=== PATIENT | male | born 1940 | race Caucasian/White ===

== ENCOUNTER → 2019-04-10 08:38 | Outpatient (BNVA) | payer MEDICARE, MEDICAID, SELFPAY | PROVIDERS: Family Provider Physician Assistant Medical; PCP Physician Assistant Medical; Referring Provider Internal Medicine Rheumatology; Visit Provider Internal Medicine Rheumatology | DX: M05.79 Rheumatoid arthritis with rheumatoid factor of multiple sites without organ or systems involvement (principal); J44.9 Chronic obstructive pulmonary disease, unspecified; Z79.899 Other long term (current) drug therapy; F17.210 Nicotine dependence, cigarettes, uncomplicated | CPT/HCPCS: 99213 ==

== ENCOUNTER → 2019-05-20 08:51 | Outpatient (BNVA) | payer MEDICARE, MEDICAID, SELFPAY | PROVIDERS: Family Provider Physician Assistant Medical; PCP Physician Assistant Medical; Visit Provider Internal Medicine Rheumatology | DX: M05.79 Rheumatoid arthritis with rheumatoid factor of multiple sites without organ or systems involvement (principal); Z79.899 Other long term (current) drug therapy | CPT/HCPCS: 36415; 80076; 82565; 85025; 85651; 86140 ==

== ENCOUNTER → 2019-05-20 09:14 | Outpatient (BNVA) | payer MEDICARE, MEDICAID, SELFPAY | PROVIDERS: Family Provider Physician Assistant Medical; PCP Physician Assistant Medical; Visit Provider Internal Medicine Rheumatology | DX: M05.79 Rheumatoid arthritis with rheumatoid factor of multiple sites without organ or systems involvement (principal); Z79.899 Other long term (current) drug therapy | CPT/HCPCS: 85025 ==

== ENCOUNTER → 2019-09-12 13:22 | Outpatient (BNVA) | payer MEDICARE, MEDICAID, SELFPAY | PROVIDERS: Family Provider Physician Assistant Medical; PCP Physician Assistant Medical; Visit Provider Internal Medicine Rheumatology | DX: M05.79 Rheumatoid arthritis with rheumatoid factor of multiple sites without organ or systems involvement (principal); Z79.899 Other long term (current) drug therapy; J44.9 Chronic obstructive pulmonary disease, unspecified; I25.10 Atherosclerotic heart disease of native coronary artery without angina pectoris; F17.210 Nicotine dependence, cigarettes, uncomplicated | CPT/HCPCS: 99214 ==

== ENCOUNTER → 2020-02-18 11:18 | Outpatient (BNVA) | payer MEDICARE, MEDICAID, SELFPAY | PROVIDERS: Family Provider Physician Assistant Medical; PCP Physician Assistant Medical; Visit Provider Internal Medicine Rheumatology | DX: Z79.899 Other long term (current) drug therapy (principal); M05.79 Rheumatoid arthritis with rheumatoid factor of multiple sites without organ or systems involvement | CPT/HCPCS: 36415; 80076; 82565; 85025; 85651; 86140 ==

== ENCOUNTER → 2020-03-17 11:14 | Outpatient (BNVA) | payer MEDICARE, MEDICAID, SELFPAY | PROVIDERS: Family Provider Physician Assistant Medical; PCP Physician Assistant Medical; Visit Provider Internal Medicine Rheumatology | DX: M05.79 Rheumatoid arthritis with rheumatoid factor of multiple sites without organ or systems involvement (principal); Z79.899 Other long term (current) drug therapy; J44.9 Chronic obstructive pulmonary disease, unspecified; Z90.01 Acquired absence of eye; F17.210 Nicotine dependence, cigarettes, uncomplicated | CPT/HCPCS: 99214 ==

== ENCOUNTER → 2020-07-21 10:29 | Outpatient (BNVA) | payer MEDICARE, MEDICAID, SELFPAY | PROVIDERS: Family Provider Physician Assistant Medical; PCP Physician Assistant Medical; Visit Provider Internal Medicine Rheumatology | DX: M05.79 Rheumatoid arthritis with rheumatoid factor of multiple sites without organ or systems involvement (principal); Z79.899 Other long term (current) drug therapy | CPT/HCPCS: 36415; 80076; 82565; 85025; 86140 ==

== ENCOUNTER → 2020-07-28 09:35 | Outpatient (BNVA) | payer MEDICARE, MEDICAID, SELFPAY | PROVIDERS: Family Provider Physician Assistant Medical; PCP Physician Assistant Medical; Visit Provider Internal Medicine Rheumatology | DX: M05.79 Rheumatoid arthritis with rheumatoid factor of multiple sites without organ or systems involvement (principal); Z79.899 Other long term (current) drug therapy; J44.9 Chronic obstructive pulmonary disease, unspecified; Z90.01 Acquired absence of eye; F17.210 Nicotine dependence, cigarettes, uncomplicated | CPT/HCPCS: 99214 ==

== ENCOUNTER → 2020-10-26 10:54 | Outpatient (BNVA) | payer MEDICARE, MEDICAID, SELFPAY | PROVIDERS: Family Provider Physician Assistant Medical; PCP Physician Assistant Medical; Visit Provider Internal Medicine | DX: M05.79 Rheumatoid arthritis with rheumatoid factor of multiple sites without organ or systems involvement (principal); Z79.899 Other long term (current) drug therapy | CPT/HCPCS: 36415; 80076; 82565; 85025; 86140 ==

== ENCOUNTER → 2021-01-19 10:55 | Outpatient (BNVA) | payer MEDICARE, MEDICAID, SELFPAY | PROVIDERS: Family Provider Physician Assistant Medical; PCP Physician Assistant Medical; Visit Provider Internal Medicine Rheumatology | DX: M05.79 Rheumatoid arthritis with rheumatoid factor of multiple sites without organ or systems involvement (principal); Z79.899 Other long term (current) drug therapy; M19.90 Unspecified osteoarthritis, unspecified site | CPT/HCPCS: 36415; 80076; 82565; 85025; 86140 ==

== ENCOUNTER → 2021-02-02 09:21 | Outpatient (BNVA) | payer MEDICARE, MEDICAID, SELFPAY | PROVIDERS: Family Provider Physician Assistant Medical; PCP Physician Assistant Medical; Visit Provider Internal Medicine Rheumatology | DX: M05.79 Rheumatoid arthritis with rheumatoid factor of multiple sites without organ or systems involvement (principal); Z79.899 Other long term (current) drug therapy; J44.9 Chronic obstructive pulmonary disease, unspecified; Z90.01 Acquired absence of eye; Z71.89 Other specified counseling; F17.210 Nicotine dependence, cigarettes, uncomplicated | CPT/HCPCS: 99214 ==

== ENCOUNTER 2021-06-06 17:15 | Inpatient (IN) | payer MEDICARE, MEDICAID, SELFPAY ==
[2021-06-06] VITALS (9 sets, daily range): BP systolic 101–153; BP diastolic 63–107; PULSE 84–99; RESP 16–19; TEMP 36.6–37; O2SAT 92–96; BMI 17.9; BMI 19.2
--- NOTE | 2021-06-06 17:16 | XRR_ITS ---
PROCEDURE INFORMATION: Exam: XR Chest Exam date and time: 06/06/2021 5:23 PM Age: 80 years old Clinical indication: Dyspnea; Additional info: Fall TECHNIQUE: Imaging protocol: XR of the chest. Views: 1 view. COMPARISON: CR Chest 1 view [id number] 03/15/2018 4:42 AM FINDINGS: Lungs: Unremarkable. No consolidation. Pleural spaces: Unremarkable. No pleural effusion. No pneumothorax. Heart/Mediastinum: Unremarkable. No cardiomegaly. Bones/joints: Unremarkable. XR/XR chest 1V portable [id number] IMPRESSION: No acute findings.
--- NOTE | 2021-06-06 17:16 | XRR_ITS ---
PROCEDURE INFORMATION: Exam: XR Left Hip Exam date and time: 06/06/2021 5:23 PM Age: 80 years old Clinical indication: Injury or trauma; Fall; Fracture of pelvis & hip; Left; Traumatic fracture; Neck of femur, base; Nondisplaced TECHNIQUE: Imaging protocol: XR Left hip. Views: 2 or 3 views hip with pelvis when performed. COMPARISON: No relevant prior studies available. FINDINGS: Bones/joints: Intertrochanteric mildly displaced left hip fracture. Soft tissues: Unremarkable. XR/XR hip LT 2-3V wo/w pel* [id number] IMPRESSION: Intertrochanteric mildly displaced left hip fracture.
--- NOTE | 2021-06-06 17:18 | ED_ITS ---
HPI - Fall General: Chief Complaint: Fall Stated Complaint: LEFT HIP PAIN S/P FALL Time Seen by Provider: 06/06/21 17:16 Source: patient and EMS Mode of arrival: EMS Limitations: no limitations History of Present Illness: 80-year-old male who tripped and fell at home roughly an hour ago. He states he landed on his left hip when he fell has had left hip pain since that fall. He denies any other injuries denies hitting his head denies any back pain states pain in his hips of 6 out of 10 much worse with any type of movement improved with rest. Associated symptoms-after fall: Denies abdominal pain, chest pain or headache(s) Review of Systems Const: Denies: fever(s), chills, body aches or change in appetite Eyes: Denies: blurry vision or eye discomfort ENMT: Denies: throat pain or dental pain Card: Denies: chest pain Resp: Denies: dyspnea GI: Denies: abdominal pain, nausea, vomiting or diarrhea : Denies: dysuria Musc: Reports: extremity pain Skin/Breast: Denies: rash Neuro: Denies: headache(s) Psych: Denies: depression Joshua/Lymph: Denies: easy bruising All/Imm: Denies: urticaria PFSH ED PFSH: Medical History CAD (coronary artery disease) Chronic kidney disease (CKD) COPD (chronic obstructive pulmonary disease) Diabetes mellitus Dyslipidemia Gout, unspecified High risk medication use History of anterior wall myocardial infarction Immunization counseling Ischemic cardiomyopathy Mild aortic stenosis Presence of stent in LAD coronary artery Rheumatoid arthritis with rheumatoid factor of multiple sites without organ or systems involvement Tobacco abuse Surgical History H/O bilateral cataract extraction History of eye evisceration Stented coronary artery Family History Denies family history of Rheumatoid arthritis Lupus Social History Smoking and tobacco status: current every day smoker cigarettes Packs smoked per day: 0.5 Years cigarettes smoked: 30 Alcohol intake: unknown Marital status: Physical Exam Const: COMMON NORMALS: no acute distress, patient oriented x3 and healthy appearing HENMT: COMMON NORMALS: normocephalic and atraumatic HEAD & SCALP: normocephalic and atraumatic Eye: COMMON NORMALS: Equal, round and reactive pupils present and EOMs intact bilaterally PUPIL: Yes Equal, round and reactive pupils present Neck/C-Spine: COMMON NORMALS: full ROM and supple Chest: COMMONS NORMALS: normal inspection of the chest and normal palpation of entire chest wall Resp: COMMON NORMALS: normal respiratory effort, No retractions, No use of accessory muscles and clear to auscultation bilaterally AUSCULTATION: clear to auscultation bilaterally Cardio: COMMON NORMALS: regular rate, regular rhythm and No murmurs present (Cardio) RATE: regular rate RHYTHM: regular rhythm GI: COMMON NORMALS: Normal to inspection, nondistended, normoactive bowel sounds present, Soft to palpation, non-tender and no masses PALPATION: Yes Soft to palpation Extremity: NARRATIVE EXTREMITY EXAM: Tenderness to left hip on palpation distal pulses and sensations intact Neuro: COMMON NORMALS: patient oriented x3, moves all extremities and no focal motor deficits Psych: COMMON NORMALS: mental status grossly normal, Normal thought process present and cooperative THOUGHT PROCESS: Normal thought process present Skin: COMMON NORMALS: no rashes or lesions noted and no wounds GENERAL SKIN EXAM: no rashes or lesions noted Course Vital Signs: Vital signs: Vital Signs Temperature 97.9 F 06/06/21 17:16 Pulse Rate 87 06/06/21 17:32 Respiratory Rate 16 06/06/21 17:32 Blood Pressure 101/63 06/06/21 17:32 Pulse Oximetry 96 06/06/21 17:32 MDM - Fall Medical Decision Making Patient presents here with a hip fracture from a fall no other injuries noted I spoke to hospitalist along with orthopedist and will admit at this time. He has no head injury or neck injury. 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
--- NOTE | 2021-06-06 17:30 | ECG_ITS ---
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 Measurements Intervals [place] Rate: 78 P: 50 MT: 180 QRS: 42 QRSD: 89 T: 50 QT: 376 QTc: 431 Interpretive Statements SINUS RHYTHM LOW QRS VOLTAGE IN PRECORDIAL LEADS [QRS DEFLECTION < 1.0 mV IN CHEST LEADS] POSSIBLE ANTERIOR MYOCARDIAL INFARCTION , PROBABLY OLD [30 ms Q WAVE IN V3/V4, OR R < 0.2 mV IN V4] Compared to ECG 03/15/2018 12:36:49 Low QRS voltage now present Myocardial infarct finding now present Sinus tachycardia no longer present Electronically Signed On 06-07-2021 9:00:55 CDT by Erik Barnes M.D. [id number]
[2021-06-06] MEDS: ondansetron 2 mg/ML SDV 2 mL 4 MG IVP ×2 (17:46→20:19)
[2021-06-06] MEDS: morphine 4 mg/mL SDV 1 mL IVP ×2 (17:46→18:46)
[2021-06-06 17:50] LABS: Basophils # 0.1 10^3/uL (0.0-0.1); Basophils % 0.4 %; Eosinophils # 0.3 10^3/uL (0.0-0.8); Eosinophils % 2.1 %; Hematocrit 36.3 % (42.0-52.0); Hemoglobin 11.8 g/dL (11.7-16.6); Lymphocytes # 1.2 10^3/uL (0.8-4.8); Lymphocytes % 9.9 %; Mean Corpuscular HGB Conc 32.5 g/dL (30.0-36.0); Mean Corpuscular Hemoglobin 36.4 pg (28.0-34.0); Mean Platelet Volume 10.2 fL (7.4-10.4); Monocytes # 0.6 10^3/uL (0.2-0.9); Monocytes % 5.1 %; Neutrophils # 9.52 10^3/uL (1.8-7.7); Neutrophils % 81.7 %; Nucleated Red Blood Cells % 0 %; Platelet Count 145 10^3/cmm (130-400); Red Blood Count 3.24 10^6/uL (4.1-5.3); Red Cell Distribution Width 16.2 % (12.1-15.1); White Blood Count 11.7 10^3/uL (4.0-10.0)
[2021-06-06 18:04] LABS: INR 1.05 (0.8-1.2)
[2021-06-06 18:11] LABS: Alanine Aminotransferase 25 U/L (0-41); Albumin Level 4.4 g/dL (3.5-5.2); Alkaline Phosphatase 158 IU/L (40-130); Anion Gap 13.9 (5-19); Aspartate Amino Transferase 32 U/L (0-40); Blood Urea Nitrogen 20 mg/dL (8-23); Calcium 9.7 mg/dL (8.5-10.5); Carbon Dioxide 24 mmol/L (22-29); Chloride 103 mmol/L (98-107); Glucose 120 mg/dL (65-115); Osmolality Calculated 288 mOsm/kg (285-295); Potassium 3.9 mmol/L (3.5-5.1); Sodium 137 mmol/L (136-145); Total Bilirubin 0.5 mg/dL (0.15-1.2); Total Protein 7.4 g/dL (6.6-8.7)
--- NOTE | 2021-06-06 18:45 | P.HP_ITS ---
Providers/Chief Complaint Primary Care Provider: Maria Del Carmen London MD Chief Complaint: LEFT HIP PAIN S/P FALL History of Present Illness Pleasant 80-year-old gentleman with history of CAD, with LAD stenting about 13 years ago, with COPD, not normally on supplemental oxygen, but with quite significant exertional dyspnea, states that if he walked out to the nursing station and back he would have to stop and rest, with rheumatoid arthritis, with intermittent prednisone therapy, currently taking it only as needed, not taking at the moment, current smoker, states smoking 1.5-1 pack/day, says that his previous private advisor had given him permission to continue smoking and does not plan on quitting, with other comorbidities including HTN, HLD, DM 2, was loading up a metal toolbox onto the back of a pickup truck with his friend, and states that his legs got tangled up underneath him somehow, he ended up falling on his left hip. With finding of left hip fracture in ER orthopedics is consulted. Review of Systems Const: Denies: fever(s), chills, body aches or malaise Eyes: Denies: change in vision or eye redness ENMT: Denies: throat pain, oral sores or ear or mastoid pain Card: Reports: dyspnea on exertion; Denies: chest pain, edema or pre-syncope Resp: Reports: productive cough (chronic); Denies: dyspnea, change in phlegm color or hemoptysis GI: Denies: abdominal pain, nausea, vomiting, diarrhea, constipation, hematochezia or melena : Denies: flank pain, difficulty urinating, urinary frequency or hematuria Musc: Reports: joint pain (L hip); Denies: back pain, joint swelling or joint redness Skin/Breast: Denies: rash, sores or new lesions Neuro: Denies: headache(s), numbness in extremities, weakness in extremities, dizziness, confusion or seizure-like activity Endo: Denies: polyuria or polydipsia Joshua/Lymph: Denies: easy bleeding or purpura All/Imm: Denies: urticaria, throat swelling or tongue swelling Medications/Allergies Home Medications Medication Instructions Recorded Confirmed Last Taken Type albuterol sulfate 90 mcg/actuation 2 puff INHALATION Q6H PRN 03/15/19 06/06/21 Unknown History aerosol inhaler (ProAir HFA) aspirin 81 mg tablet,delayed 81 mg PO DAILY tab 03/15/19 06/06/21 06/06/21 History release (Adult Aspirin Regimen) fluticasone 250 mcg-salmeterol 50 1 inh INHALATION BID 03/15/19 06/06/21 06/06/21 History mcg/dose blistr powdr for inhalation (Advair Diskus) ipratropium bromide 17 1 puff INHALATION QID PRN 03/15/19 06/06/21 Unknown History mcg/actuation HFA aerosol inhaler (Atrovent HFA) umeclidinium 62.5 mcg/actuation 1 inh INHALATION Q24H 03/15/19 06/06/21 06/06/21 History blister powder for inhalation (Incruse Ellipta) prednisone 5 mg tablet See Rx Instructions PO DAILY #30 02/25/20 06/06/21 Unknown Rx tab folic acid 1 mg tablet 1 mg PO DAILY #90 tab 10/07/20 06/06/21 06/06/21 Rx methotrexate sodium 2.5 mg tablet See Rx Instructions PO .COMPLEX 02/02/21 06/06/21 06/03/21 Rx #35 tab adalimumab 40 mg/0.4 mL 40 mg (0.4 mL) SUBCUT Q14D #2 each 05/10/21 06/06/21 06/03/21 Rx subcutaneous pen kit (Humira(CF) Pen) diclofenac sodium 1 % topical gel 2 g TOPICAL QID PRN 06/06/21 06/06/21 Unknown History fluticasone propionate 50 1 spray INTRANASAL DAILY PRN 06/06/21 06/06/21 Unknown History mcg/actuation nasal spray,suspension polyethylene glycol 3350 17 17 g PO DAILY PRN 06/06/21 06/06/21 Unknown History gram/dose oral powder (Miralax) simvastatin 40 mg tablet 40 mg PO BEDTIME 06/06/21 06/06/21 06/05/21 History Allergies Allergy/AdvReac Type Severity Reaction Status Date / Time No Known Allergies Allergy Verified 10/30/20 10:15 PFSH Acute PFSH: Medical History CAD (coronary artery disease) Chronic kidney disease (CKD) COPD (chronic obstructive pulmonary disease) Diabetes mellitus Dyslipidemia Gout, unspecified High risk medication use History of anterior wall myocardial infarction Immunization counseling Ischemic cardiomyopathy Mild aortic stenosis Presence of stent in LAD coronary artery Rheumatoid arthritis with rheumatoid factor of multiple sites without organ or systems involvement Tobacco abuse Surgical History H/O bilateral cataract extraction History of eye evisceration Stented coronary artery Family History Denies family history of Rheumatoid arthritis Lupus Social History (Updated 06/06/21 @ 19:04 by Aditya Beck MD) Smoking and tobacco status: current every day smoker cigarettes Packs smoked per day: 1.5 Years cigarettes smoked: 30 Alcohol intake: never Substance/Drug Use: never Marital status: Vitals/I&O/Wt Last Vital Signs Temp 98.5 F 06/06/21 18:29 Pulse 84 06/06/21 18:29 Resp 17 06/06/21 18:29 BP 119/63 06/06/21 18:29 Pulse Ox 94 06/06/21 18:29 Weight last 48 hrs Weight 56.699 kg Physical Exam Narrative: Daughter at bedside. Const: COMMON NORMALS: no acute distress and patient oriented x3 HENMT: COMMON NORMALS: oropharynx normal Neck/C-Spine: COMMON NORMALS: no JVD Resp: COMMON NORMALS: normal respiratory effort and clear to auscultation bilaterally AUSCULTATION: clear to auscultation bilaterally Cardio: COMMON NORMALS: no JVD, regular rhythm, S1 normal heart sound present, S2 normal heart sound present and No murmurs present (Cardio) RHYTHM: regular rhythm HEART SOUNDS: S1 normal heart sound present and S2 normal heart sound present GI: COMMON NORMALS: Normal to inspection, nondistended, normoactive bowel sounds present, Soft to palpation and non-tender PALPATION: Yes Soft to palpation Extremity: COMMON NORMALS: no joint enlargement and no pedal edema NARRATIVE EXTREMITY EXAM: L hip deformity Neuro: COMMON NORMALS: patient oriented x3 and moves all extremities Skin: COMMON NORMALS: no rashes or lesions noted GENERAL SKIN EXAM: no rashes or lesions noted Data : 06/06/21 17:45 06/06/21 17:45 A&P Assessment and plan (1) Intertrochanteric fracture of left hip: Discussed with him and his daughter, elevated risk of surgery based on age, chronic severe systemic disease, chronic steroids, dyspnea with mild to moderate exertion, continued smoking, COPD, underweight, chronic steroid use. Discussed risk of serious complication after 18%, and any complication up to 20%. Risk of pneumonia up to 9%, all above average. Cardio complication up to 3%. Risk of admission up to 14%, risk of sepsis up to 3.1%. up to 7.6%. Among others these parameters are all above average. Certainly this will play into his decision regarding treatment, nonsurgical option discussed, however, he does value his independence, as nonsurgical options would not allow for early mobilization. At the moment with underlying severe chronic illness, he does not have exacerbation of COPD, no suggestion of acute TX, or other additional acute illness, and as such if decision is made to proceed with surgery, additional delays would not be of benefit. He is not recently on steroids, however, has had them frequently in the past, using as needed. May be at risk for adrenal insufficiency. Currently not hypotensive, rather hypertensive. Monitor blood pressures. Status: Acute (2) COPD (chronic obstructive pulmonary disease): Not currently in exacerbation. Continue albuterol as needed. Status: Acute Qualifiers: COPD type: unspecified COPD Qualified Code(s): J44.9 - Chronic obstructive pulmonary disease, unspecified (3) CAD (coronary artery disease): With prior stenting, continue aspirin, statin, is not on beta-sterling. Status: Acute Qualifiers: Coronary Disease-Associated Artery/Lesion type: [place] artery [place] vs. transplanted heart: [place] heart Associated angina: without angina Qualified Code(s): I25.10 - Atherosclerotic heart disease of [place] coronary artery without angina pectoris (4) High risk medication use: Status: Acute (5) Rheumatoid arthritis with rheumatoid factor of multiple sites without organ or systems involvement: Status: Acute (6) Tobacco abuse: Discussed with him smoking cessation. He states his previous private advisor given permission to smoke, and states he is not intended to quit. Discussed underlying conditions including coronary disease, elevated risk of progression of cardiovascular disease including in the setting of rheumatoid arthritis, COPD, with progressive dyspnea, and other risks. Encouraged him to consider quitting smoking. Continue to encourage. Status: Acute (7) Ischemic cardiomyopathy: Status: Acute Attestations Medical Necessity Statement*: Admission of over 2 midnights is anticipated for assessment of management of left hip fracture in gentleman with multiple underlying chronic comorbidities. 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 transplanted heart: [place] heart Associated angina: without angina High risk medication use Z79.899 Rheumatoid arthritis with rheumatoid factor of multiple sites without organ or systems involvement M05.79 Tobacco abuse Z72.0 Ischemic cardiomyopathy I25.5
[2021-06-07] VITALS (26 sets, daily range): BP systolic 92–122; BP diastolic 55–89; PULSE 70–97; RESP 12–19; TEMP 36.3–36.9; O2SAT 86–99
--- NOTE | 2021-06-07 | SCC_ITS ---
Procedure done: Left IM nail for IT fracture 32 seconds of fluoroscopic guidance, for a cumulative dose of 3.37 mGy, was provided to Dr. Mancilla by the radiology department. C-arm images of the LEFT hip were saved for the patient's permanent record. [facility]
[2021-06-07 03:28] LABS: Basophils % 0.4 %; Eosinophils % 0.5 %; Lymphocytes # 1.5 10^3/uL (0.8-4.8); Lymphocytes % 18.7 %; Mean Corpuscular HGB Conc 32.3 g/dL (30.0-36.0); Mean Corpuscular Volume 111.5 fl (80-94); Mean Platelet Volume 10.6 fL (7.4-10.4); Monocytes # 0.5 10^3/uL (0.2-0.9); Monocytes % 5.8 %; Neutrophils # 6.13 10^3/uL (1.8-7.7); Neutrophils % 74.2 %; Nucleated Red Blood Cells % 0 %; Platelet Count 123 10^3/cmm (130-400); Red Blood Count 2.78 10^6/uL (4.1-5.3); Red Cell Distribution Width 16.1 % (12.1-15.1); White Blood Count 8.3 10^3/uL (4.0-10.0)
[2021-06-07 03:42] LABS: Albumin Level 3.7 g/dL (3.5-5.2); Alkaline Phosphatase 134 IU/L (40-130); Anion Gap 14.4 (5-19); Aspartate Amino Transferase 31 U/L (0-40); Blood Urea Nitrogen 22 mg/dL (8-23); Calcium 8.9 mg/dL (8.5-10.5); Carbon Dioxide 24 mmol/L (22-29); Chloride 104 mmol/L (98-107); Globulin 2.7 g/dL (1.3-4.6); Glucose 117 mg/dL (65-115); Osmolality Calculated 290 mOsm/kg (285-295); Potassium 4.4 mmol/L (3.5-5.1); Sodium 138 mmol/L (136-145); Total Bilirubin 0.6 mg/dL (0.15-1.2); Total Protein 6.4 g/dL (6.6-8.7)
[2021-06-07 04:05] LABS: Alanine Aminotransferase 24 U/L (0-41)
--- NOTE | 2021-06-07 06:44 | PM.CONSULT ---
Providers/Reason For Consult Consulting Physician/Specialty*: Orthopedics Reason for Consult*: Left hip pain Attending Physician: Aditya Beck Primary Care Provider: Maria Del Carmen London MD History of Present Illness History of Present Illness Doron Curtis is a 80 year old male was loading something into the back of a pickup when he fell sustaining injury to his left hip felt immediate pain. He was transported to [facility]. X-rays confirmed a left hip fracture. He was admitted for more definitive treatment orthopedics was consulted. He was [facility] room 272 with continued left hip pain. Any movement makes it much worse. Is been constant sharp stabbing in nature. Rest gives him some temporary relief. Pain is localized to the left hip denies any back or neck pain. Denies any loss of consciousness in the fall. Ranks the pain is 7 out of 10 on the pain scale. Denies any knee or ankle pain. An extensive review of the patient's past medical history, surgical history, allergies, medications, family history, social history, and review of systems was completed Review of Systems Const: Denies: fever(s), chills, body aches or malaise Eyes: Denies: change in vision or eye redness ENMT: Denies: throat pain, oral sores or ear or mastoid pain Card: Reports: dyspnea on exertion; Denies: chest pain, edema or pre-syncope Resp: Reports: productive cough (chronic); Denies: dyspnea, change in phlegm color or hemoptysis GI: Denies: abdominal pain, nausea, vomiting, diarrhea, constipation, hematochezia or melena : Denies: flank pain, difficulty urinating, urinary frequency or hematuria Musc: Reports: joint pain (L hip); Denies: back pain, joint swelling or joint redness Skin/Breast: Denies: rash, sores or new lesions Neuro: Denies: headache(s), numbness in extremities, weakness in extremities, dizziness, confusion or seizure-like activity Endo: Denies: polyuria or polydipsia Joshua/Lymph: Denies: easy bleeding or purpura All/Imm: Denies: urticaria, throat swelling or tongue swelling Medications/Allergies Home Medications Medication Instructions Recorded Confirmed Last Taken Type albuterol sulfate 90 mcg/actuation 2 puff INHALATION Q6H PRN 03/15/19 06/06/21 Unknown History aerosol inhaler (ProAir HFA) aspirin 81 mg tablet,delayed 81 mg PO DAILY tab 03/15/19 06/06/21 06/06/21 History release (Adult Aspirin Regimen) fluticasone 250 mcg-salmeterol 50 1 inh INHALATION BID 03/15/19 06/06/21 06/06/21 History mcg/dose blistr powdr for inhalation (Advair Diskus) ipratropium bromide 17 1 puff INHALATION QID PRN 03/15/19 06/06/21 Unknown History mcg/actuation HFA aerosol inhaler (Atrovent HFA) umeclidinium 62.5 mcg/actuation 1 inh INHALATION Q24H 03/15/19 06/06/21 06/06/21 History blister powder for inhalation (Incruse Ellipta) prednisone 5 mg tablet See Rx Instructions PO DAILY #30 02/25/20 06/06/21 Unknown Rx tab folic acid 1 mg tablet 1 mg PO DAILY #90 tab 10/07/20 06/06/21 06/06/21 Rx methotrexate sodium 2.5 mg tablet See Rx Instructions PO .COMPLEX 02/02/21 06/06/21 06/03/21 Rx #35 tab adalimumab 40 mg/0.4 mL 40 mg (0.4 mL) SUBCUT Q14D #2 each 05/10/21 06/06/21 06/03/21 Rx subcutaneous pen kit (Humira(CF) Pen) diclofenac sodium 1 % topical gel 2 g TOPICAL QID PRN 06/06/21 06/06/21 Unknown History fluticasone propionate 50 1 spray INTRANASAL DAILY PRN 06/06/21 06/06/21 Unknown History mcg/actuation nasal spray,suspension polyethylene glycol 3350 17 17 g PO DAILY PRN 06/06/21 06/06/21 Unknown History gram/dose oral powder (Miralax) simvastatin 40 mg tablet 40 mg PO BEDTIME 06/06/21 06/06/21 06/05/21 History Allergies Allergy/AdvReac Type Severity Reaction Status Date / Time No Known Allergies Allergy Verified 10/30/20 10:15 PFSH Acute PFSH: Medical History CAD (coronary artery disease) Chronic kidney disease (CKD) COPD (chronic obstructive pulmonary disease) Diabetes mellitus Dyslipidemia Gout, unspecified High risk medication use History of anterior wall myocardial infarction Immunization counseling Ischemic cardiomyopathy Mild aortic stenosis Presence of stent in LAD coronary artery Rheumatoid arthritis with rheumatoid factor of multiple sites without organ or systems involvement Tobacco abuse Surgical History H/O bilateral cataract extraction History of eye evisceration Stented coronary artery Family History Denies family history of Rheumatoid arthritis Lupus Social History (Updated 06/06/21 @ 19:04 by Aditya Beck MD) Smoking and tobacco status: current every day smoker cigarettes Packs smoked per day: 1.5 Years cigarettes smoked: 30 Alcohol intake: never Marital status: Vitals/I&O/Wt Last Vital Signs Temp 97.5 F L 06/07/21 04:00 Pulse 77 06/07/21 04:00 Resp 17 06/07/21 04:00 BP 99/55 06/07/21 04:00 Pulse Ox 97 06/07/21 04:00 06/06/21 06/06/21 06/07/21 14:59 22:59 06:59 Intake Total 100 / 100 Output Total 350 / 350 Balance -250 / -250 Weight last 48 hrs Weight 130 lb Weight 125 lb Physical Exam Narrative: He is alert oriented x3 has good general appearance normal mood normal affect. He has had operative removal of his right eye. He has no palpable pain in the cervical thoracic or lumbar region. Does have palpable pain over the left hip with obvious external rotation. He has positive logroll on the left negative on the right. Skin is clear warm femoral good cap refill calves are supple no medial thigh tenderness. Dorsalis pedis posterior pulses are palpable. Has full range of motion of the right lower extremity at the hip knee and ankle. HENMT: COMMON NORMALS: normocephalic and atraumatic HEAD & SCALP: normocephalic and atraumatic OTHER: Surgical removal of the right eye Resp: COMMON NORMALS: normal respiratory effort Cardio: COMMON NORMALS: regular rate and regular rhythm RATE: regular rate RHYTHM: regular rhythm GI: COMMON NORMALS: Soft to palpation and non-tender PALPATION: Yes Soft to palpation : COMMON NORMALS: Yes no CVA tenderness BLADDER/KIDNEY EXAM: Yes no CVA tenderness Back/Pelvis: COMMON NORMALS: no CVA tenderness Psych: COMMON NORMALS: mental status grossly normal Data : 06/07/21 02:24 06/07/21 02:24 A&P Assessment and plan (1) Intertrochanteric fracture of left hip: Discussed the x-ray findings with the patient. Will proceed with open reduction internal fixation with a trochanteric femoral nail of the left hip. Discussed with Dr. Mancilla agrees above-stated plan. We will keep him n.p.o. 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
--- NOTE | 2021-06-07 07:30 | P.ANESASSM_ITS ---
Pre-Anesthetic Assessment Height/Weight: Height 1.75 m Weight 58.967 kg Temp Pulse Resp BP Pulse Ox 97.5 F L 85 18 108/69 95 06/07/21 04:00 06/07/21 07:18 06/07/21 07:18 06/07/21 07:18 06/07/21 07:18 Preop Diagnosis: Left Intertrochanteric Hip Fracture Operation Date: 06/07/21 14:50 Proposed Procedures p Trochanteric Femoral Nail(Left) - Pineda Mancilla DO Last intake: Intake Last Liquid Date 06/06/21 Last Liquid Time 16:00 Last Solid Date 06/06/21 Last Solid Time 08:00 Medications/Allergies Home Medications Medication Instructions Recorded Confirmed Last Taken Type albuterol sulfate 90 mcg/actuation 2 puff INHALATION Q6H PRN 03/15/19 06/06/21 Unknown History aerosol inhaler (ProAir HFA) aspirin 81 mg tablet,delayed 81 mg PO DAILY tab 03/15/19 06/06/21 06/06/21 History release (Adult Aspirin Regimen) fluticasone 250 mcg-salmeterol 50 1 inh INHALATION BID 03/15/19 06/06/21 06/06/21 History mcg/dose blistr powdr for inhalation (Advair Diskus) ipratropium bromide 17 1 puff INHALATION QID PRN 03/15/19 06/06/21 Unknown History mcg/actuation HFA aerosol inhaler (Atrovent HFA) umeclidinium 62.5 mcg/actuation 1 inh INHALATION Q24H 03/15/19 06/06/21 06/06/21 History blister powder for inhalation (Incruse Ellipta) prednisone 5 mg tablet See Rx Instructions PO DAILY #30 02/25/20 06/06/21 Unknown Rx tab folic acid 1 mg tablet 1 mg PO DAILY #90 tab 10/07/20 06/06/21 06/06/21 Rx methotrexate sodium 2.5 mg tablet See Rx Instructions PO .COMPLEX 02/02/21 06/06/21 06/03/21 Rx #35 tab adalimumab 40 mg/0.4 mL 40 mg (0.4 mL) SUBCUT Q14D #2 each 05/10/21 06/06/21 06/03/21 Rx subcutaneous pen kit (Humira(CF) Pen) diclofenac sodium 1 % topical gel 2 g TOPICAL QID PRN 06/06/21 06/06/21 Unknown History fluticasone propionate 50 1 spray INTRANASAL DAILY PRN 06/06/21 06/06/21 Unknown History mcg/actuation nasal spray,suspension polyethylene glycol 3350 17 17 g PO DAILY PRN 06/06/21 06/06/21 Unknown History gram/dose oral powder (Miralax) simvastatin 40 mg tablet 40 mg PO BEDTIME 06/06/21 06/06/21 06/05/21 History Allergies Allergy/AdvReac Type Severity Reaction Status Date / Time No Known Allergies Allergy Verified 10/30/20 10:15 [facility] Anesthesia Medical History CAD (coronary artery disease) Chronic kidney disease (CKD) COPD (chronic obstructive pulmonary disease) Diabetes mellitus Dyslipidemia Gout, unspecified High risk medication use History of anterior wall myocardial infarction Immunization counseling Ischemic cardiomyopathy Mild aortic stenosis Presence of stent in LAD coronary artery Rheumatoid arthritis with rheumatoid factor of multiple sites without organ or systems involvement Tobacco abuse Surgical History H/O bilateral cataract extraction History of eye evisceration Stented coronary artery Family History Denies family history of Rheumatoid arthritis Lupus Social History (Updated 06/06/21 @ 19:04 by Aditya Beck MD) Smoking and tobacco status: current every day smoker cigarettes Packs smoked per day: 1.5 Years cigarettes smoked: 30 Alcohol intake: never Marital status: Data Anesthesia : 06/07/21 02:24 06/07/21 02:24 Short CBC 06/06/21 06/07/21 Range/Units 17:45 02:24 WBC 11.7 H 8.3 (4.0-10.0) 10^3/uL Hgb 11.8 10.0 L (11.7-16.6) g/dL Hct 36.3 L 31.0 L (42.0-52.0) % MCV 112.0 H 111.5 H (80-94) fl Plt Count 145 123 L (130-400) 10^3/cmm Neut % (Auto) 81.7 74.2 % Neut # (Auto) 9.52 H 6.13 (1.8-7.7) 10^3/uL BMP 06/06/21 06/07/21 17:45 02:24 Sodium 137 138 Potassium 3.9 4.4 Chloride 103 104 Carbon Dioxide 24 24 BUN 20 22 Creatinine 1.1 1.2 Glucose 120 H 117 H Calcium 9.7 8.9 Liver Function 06/06/21 06/07/21 Range/Units 17:45 02:24 Total Bilirubin 0.5 0.6 (0.15-1.2) mg/dL AST 32 31 (0-40) U/L ALT 25 24 (0-41) U/L Alkaline Phosphatase 158 H 134 H (40-130) IU/L Albumin 4.4 3.7 (3.5-5.2) g/dL Coags 06/06/21 17:45 PT 14.00 INR 1.05 Cardiac Studies: No Data to Display
--- NOTE | 2021-06-07 07:51 | PC.NURSE ---
surgery Pt went down to surgery around 714.
--- NOTE | 2021-06-07 08:10 | XR_ITS ---
WS: [id number] Exam: XR hip LT 1V wo/w pel [id number] Date/Time of Exam: 06/07/2021 8:10 AM Reason For Exam: OR PICS Comparison 06/06/2021. A single lateral intraoperative C-arm image of the left hip is submitted for ev aluation. Previously noted intertrochanteric fracture of the left hip has been stabilized with an intramedullar y lenore and compression screw. No other significant finding on this limited study.
--- NOTE | 2021-06-07 08:20 | PM.OP ---
Operative Report Date of procedure: June 07, 2021 Pre-op diagnosis: Preop Diagnosis Left Intertrochanteric Hip Fracture Post-op diagnosis: same Procedure done: Left IM nail for IT fracture Surgeon: Pineda Mancilla Craft Demonstrator: Quintin Gold Craft Demonstrator: The surgical coordinator, Quintin Gold, PAC was needed for his expertise with fracture care. He was important and necessary throughout the procedure to complete in a safe and timely manner. He assisted with patient positioning prepping and draping tissue retraction suctioning of the operative field protection of the critical structures and tissue closure Estimated blood loss (mL): 5 Procedure: Patient was brought to the operative suite after undergoing anesthesia was placed in the supine position on the fracture table. Traction and rotation was applied in order to facilitate reducing the fracture. This was confirmed under C-arm guidance. Skin incision was made over the left hip. Starting pin was inserted opening reamer was inserted. The nail was then inserted into the top of the trochanter and down into the shaft. The lag screw was then placed by placing a guidewire then overreamed. This was 110 mm screw was locked into position. The distal locking screw was placed as a 40 mm screw. AP lateral fluoroscopy ensured that the fracture and hardware improved position. Wounds were irrigated closed with Vicryl mary. Sterile dressings were applied patient was transferred to the PACU in stable condition.
[2021-06-07] MEDS: HYDROcodone-acetaminophen 5-325 mg Tablet PO (09:14)
[2021-06-07] MEDS: albuterol 8 gm MDI 2 PUFF INHALATION (09:46)
[2021-06-07] MEDS: sodium chloride 0.9% 1,000 ML 30 ML IV (10:03)
--- NOTE | 2021-06-07 10:26 | PC.CHAP ---
Pastoral Care Encounter/Spiritual Assessment Type of Contact [] Declined search engineer visit [] Patient/Family/Request visit [] Outpatient visit [] Follow-up visit [] Physician referral [] Code/Alert [ x] Routine visit [] Staff referral [] Actively dying [] Patient sleeping [] Family support [] [] Out of room [] Palliative care [] [ x] Receiving care in room [] Pre-surgical visit [] Trauma [] Long length of stay [] ICU visit [] Other: Relational/Emotional Strength [] Patient feels connected with others/family/visitors/staff [] Distress [] Loneliness/isolation [] Abandonment Spirituality of Patient [] Person of Avril [] Attends Baptism of their Avril [] Believes in Prayer [] Reads Bible or Confucianism materials [] There are Spiritual issues to be addressed Machine Feeder Interventions [] Prayer [] Active listening [] Non-anxious presence [] Spiritual/emotional support [] Crisis/trauma care [] Spiritual counseling [] Bereavement support [] Provided bereavement packet [] Provided Bible/devotional materials [] Provided toy/stuffed animal, coloring book to patient or family member [] Provided Communion [] Anointing/Lipan [] Salvation [] Completed spiritual assessment [] Other: Impact on Illness or Injury [] Angry [] Fearful [] Anxious [] Often cries [] Exhaustion [] Unable to work [] Unable to attend anabaptist [] Unable to walk/stand [] Unable to read [] Unable to drive [] Unable to eat/drink [] Unable to sleep [] Unable to be with family [] Patient intubated [] Other: Summary Time spent with patient
--- NOTE | 2021-06-07 12:01 | PM.PN ---
Subjective Subjective: Patient seen post surgery. Seems to be doing okay presently. Pain is tolerable. Breathing is at baseline. He has brought in his inhalers from home. No reports of any chest pain. Follows with Dr. Kelly outpatient for rheumatology and Dr Barnes for cardiology, though has not seen either since last fall. Medications: Reviewed: Yes Vitals/I&O/Wt Last Vital Signs Temp 97.9 F 06/07/21 10:15 Pulse 91 06/07/21 10:15 Resp 17 06/07/21 10:15 BP 108/72 06/07/21 10:15 Pulse Ox 93 06/07/21 10:15 06/06/21 06/07/21 06/07/21 22:59 06:59 14:59 Intake Total 100 / 100 360 / 360 Output Total 475 / 475 75 / 75 Balance -375 / -375 285 / 285 Weight last 48 hrs Weight 58.967 kg Weight 56.699 kg Physical Exam Narrative: Constitutional: Awake and alert, answers questions HEENT: History of prior left eye enucleation evident but otherwise normocephalic, moist mucous membranes Respiratory: Scattered wheezes, no accessory muscle use noted Cardiovascular: Regular rhythm Abdomen: Soft, nontender, positive bowel sounds Extremities: Dressing intact to left lateral hip area, ice in place, SCDs in place Neuro: Speech clear, wiggles toes bilaterally and strength is grossly equal at both feet and hands Data : 06/07/21 02:24 06/07/21 02:24 A&P Assessment and plan (1) Intertrochanteric fracture of left hip: POD 0 Status: Acute Qualifiers: Encounter type: initial encounter Fracture type: closed Fracture alignment: displaced Qualified Code(s): S72.142A - Displaced intertrochanteric fracture of left femur, initial encounter for closed fracture (2) Macrocytic anemia: Present prior to admission with drop postoperatively which is not unexpected, mild thrombocytopenia Status: Acute (3) CAD (coronary artery disease): With prior LAD stent, no current symptoms Status: Chronic Qualifiers: Coronary Disease-Associated Artery/Lesion type: [place] artery [place] vs. transplanted heart: [place] heart Associated angina: without angina Qualified Code(s): I25.10 - Atherosclerotic heart disease of [place] coronary artery without angina pectoris (4) Ischemic cardiomyopathy: By history, not acute Status: Chronic (5) Mild aortic stenosis: Per history Status: Chronic (6) COPD (chronic obstructive pulmonary disease): Not currently in exacerbation Status: Chronic Qualifiers: COPD type: emphysema Emphysema type: panlobular Qualified Code(s): J43.1 - Panlobular emphysema (7) High risk medication use: Chronic immunosuppressive treatment for rheumatoid arthritis Status: Chronic (8) Rheumatoid arthritis with rheumatoid factor of multiple sites without organ or systems involvement: Chronically on adalimumab, weekly methotrexate and intermittent steroids Status: Chronic (9) Diabetes mellitus: Diagnosis per history, but not on current treatment, blood sugars 110s-120s, may be steroid related, glucose intolerance Status: Chronic (10) Chronic kidney disease (CKD): Near baseline creatinine Status: Chronic Qualifiers: Chronic kidney disease stage: stage 2 (mild) Qualified Code(s): N18.2 - Chronic kidney disease, stage 2 (mild) (11) Tobacco abuse: With no intentions of quitting Status: Chronic Plan Monitor postoperatively Lovenox has been started for DVT prophylaxis Receiving perioperative antibiotics x3 doses Pain control PT and OT Continue to hold adalimumab and methotrexate Monitor for need to stress dose steroids, thus far maintaining blood pressures okay Resume home aspirin, statin Monitor for any signs of volume overload or chest discomfort Has IV fluids presently at KVO with oral intake increasing Monitor blood sugars, check hemoglobin A1c given potential impact to healing Monitor renal function Discussed with patient and his family about inhalations that he normally uses at home for his breathing, these have been resumed and also added a nebulizer treatment in case needed Incentive spirometer Add flutter device Add iron replacement, B12 and folate Add multivitamin Repeat H&H in the morning with platelet count Stool softeners Supportive care otherwise Findings and plans discussed with patient and family and they were given an opportunity to ask questions Anticipate disposition to skilled facility for ongoing rehabilitation Supportive care otherwise Full code Attestations Medical Necessity Statement*: Requires ongoing inpatient stay for continued management post surgical repair of hip fracture. Other care as noted above. With comorbid conditions of risk of rapid clinical decline Coding Level of Care Code Acute Package Pick Up for Cathie Gonzalez Diagnoses Intertrochanteric fracture of left hip S72.142A Encounter type: initial encounter Fracture type: closed Fracture alignment: displaced COPD (chronic obstructive pulmonary disease) J43.1 COPD type: emphysema Emphysema type: panlobular CAD (coronary artery disease) I25.10 Coronary Disease-Associated Artery/Lesion type: [place] artery [place] vs. transplanted heart: [place] heart Associated angina: without angina High risk medication use Z79.899 Rheumatoid arthritis with rheumatoid factor of multiple sites without organ or systems involvement M05.79 Tobacco abuse Z72.0 Ischemic cardiomyopathy I25.5 Chronic kidney disease (CKD) N18.2 Chronic kidney disease stage: stage 2 (mild) Mild aortic stenosis I35.0 Diabetes mellitus E11.9 Macrocytic anemia D53.9
--- NOTE | 2021-06-07 12:14 | P.ANESASSM_ITS ---
Pre-Anesthetic Assessment Height/Weight: Height 1.75 m Weight 58.967 kg Temp Pulse Resp BP Pulse Ox 97.9 F 80 17 110/69 96 06/07/21 12:00 06/07/21 12:00 06/07/21 12:00 06/07/21 12:00 06/07/21 12:00 Preop Diagnosis: Left Intertrochanteric Hip Fracture Operation Date: 06/07/21 14:50 Proposed Procedures p Trochanteric Femoral Nail(Left) - Pineda Mancilla, DO Familial anesthetic complications: None Last intake: Intake Last Liquid Date 06/06/21 Last Liquid Time 16:00 Last Solid Date 06/06/21 Last Solid Time 08:00 Social Tobacco Exam alert, oriented x 3 and regular rate & rhythm B/L breath sounds diminished Airway Submandibular: Other (Less < 2 finger breadths ) Cervical ROM: within normal limits Mallampati: Class II Dentition: chipped and partials Pulmonary Chronic Obstructive Pulmonary Disease CV/HEM Coronary Artery Disease (S/P Stent ), Congestive Heart Failure and Myocardial Infarction Aortic Stenosis EKG ? ? Interpretive Statements SINUS RHYTHM LOW QRS VOLTAGE IN PRECORDIAL LEADS? [QRS DEFLECTION < 1.0 mV IN CHEST LEADS] POSSIBLE ANTERIOR MYOCARDIAL INFARCTION , PROBABLY OLD [30 ms Q WAVE IN V3/V4, OR R < 0.2 mV IN V4] Compared to ECG 03/15/2018 12:36:49 Low QRS voltage now present Myocardial infarct finding now present Sinus tachycardia no longer present Electronically Signed On 06-07-2021 9:00:55 CDT by Erik Barnes M.D. [email or web address] Chronic Renal Insufficiency Metabolic Diabetes Mellitus Musc/skel Osteoarthritis/DJD and Rheumatoid Arthritis Acute fx Neuropsych No loss of consiousness w/ fx Anesthetic Plan ASA status: 4 Anesthesia: Anesthesia Evaluation and General Other: We discussed risk and benefits of general anesthesia including PONV, sore throat (sometimes severe), corneal abrasion, positioning and peripheral nerve injuries, life threatening allergic reaction, post operative ICU admission requiring prolonged intubation, stroke, heart attack, , and rare incidences of recall. Patient consents to proceed with general anesthesia. Risk of > 500 ml blood loss (7ml/kg in children): No Other Pertinent Information Hx of eye evisceration Medications/Allergies Home Medications Medication Instructions Recorded Confirmed Last Taken Type albuterol sulfate 90 mcg/actuation 2 puff INHALATION Q6H PRN 03/15/19 06/06/21 Unknown History aerosol inhaler (ProAir HFA) aspirin 81 mg tablet,delayed 81 mg PO DAILY tab 03/15/19 06/06/21 06/06/21 History release (Adult Aspirin Regimen) fluticasone 250 mcg-salmeterol 50 1 inh INHALATION BID 03/15/19 06/06/2106/06 History mcg/dose blistr powdr for inhalation (Advair Diskus) ipratropium bromide 17 1 puff INHALATION QID PRN 03/15/19 06/06/21 Unknown History mcg/actuation HFA aerosol inhaler (Atrovent HFA) umeclidinium 62.5 mcg/actuation 1 inh INHALATION Q24H 03/15/19 06/06/21 06/06/21 History blister powder for inhalation (Incruse Ellipta) prednisone 5 mg tablet See Rx Instructions PO DAILY #30 02/25/20 06/06/21 Unknown Rx tab folic acid 1 mg tablet 1 mg PO DAILY #90 tab 10/07/20 06/06/21 06/06/21 Rx methotrexate sodium 2.5 mg tablet See Rx Instructions PO .COMPLEX 02/02/21 06/06/21 06/03/21 Rx #35 tab adalimumab 40 mg/0.4 mL 40 mg (0.4 mL) SUBCUT Q14D #2 each 05/10/21 06/06/21 06/03/21 Rx subcutaneous pen kit (Humira(CF) Pen) diclofenac sodium 1 % topical gel 2 g TOPICAL QID PRN 06/06/21 06/06/21 Unknown History fluticasone propionate 50 1 spray INTRANASAL DAILY PRN 06/06/21 06/06/21 Unknown History mcg/actuation nasal spray,suspension polyethylene glycol 3350 17 17 g PO DAILY PRN 06/06/21 06/06/21 Unknown History gram/dose oral powder (Miralax) simvastatin 40 mg tablet 40 mg PO BEDTIME 06/06/21 06/06/21 06/05/21 History Allergies Allergy/AdvReac Type Severity Reaction Status Date / Time No Known Allergies Allergy Verified 10/30/20 10:15 Current Medications Generic Name Dose Route Start Last Admin Trade Name Freq PRN Reason Stop Dose Admin Hydrocodone Bitart/Acetaminophen 1 - 2 tab 06/07/21 08:11 06/07/21 09:14 Hydrocodone-Acetaminophen 5-325 Mg Tablet PO 1 tab Q4H PRN Administration BREAKTHROUGH PAIN Albuterol Sulfate 2 puff 06/06/21 21:25 06/07/21 09:46 Albuterol 8 Gm Mdi INHALATION 2 puff Q6H PRN Administration Shortness Of Breath Sodium Chloride 1,000 mls @ 30 mls/hr 06/07/21 07:30 06/07/21 10:03 Sodium Chloride 0.9% IV 30 mls/hr .Q24H MARYCRUZ Administration Non-Formulary Medication 1 inh 06/06/21 21:25 06/07/21 10:25 Umeclidinium [Incruse Ellipta] INHALATION Not Given Q24H MARYCRUZ Fluticasone/Salmeterol 1 puff 06/07/21 09:00 06/07/21 09:47 Fluticasone-Salmeterol 250-50 Diskus INHALATION 1 puff BID.RESPIRATORY MARYCRUZ Administration PFSH Anesthesia Medical History CAD (coronary artery disease) Chronic kidney disease (CKD) COPD (chronic obstructive pulmonary disease) Diabetes mellitus Dyslipidemia Gout, unspecified High risk medication use History of anterior wall myocardial infarction Immunization counseling Ischemic cardiomyopathy Mild aortic stenosis Presence of stent in LAD coronary artery Rheumatoid arthritis with rheumatoid factor of multiple sites without organ or systems involvement Tobacco abuse Surgical History H/O bilateral cataract extraction History of eye evisceration Stented coronary artery Family History Denies family history of Rheumatoid arthritis Lupus Social History (Updated 06/06/21 @ 19:04 by Aditya Beck MD) Smoking and tobacco status: current every day smoker cigarettes Packs smoked per day: 1.5 Years cigarettes smoked: 30 Alcohol intake: never Marital status: Data Anesthesia : 06/07/21 02:24 06/07/21 02:24 Short CBC 06/06/21 06/07/21 Range/Units 17:45 02:24 WBC 11.7 H 8.3 (4.0-10.0) 10^3/uL Hgb 11.8 10.0 L (11.7-16.6) g/dL Hct 36.3 L 31.0 L (42.0-52.0) % MCV 112.0 H 111.5 H (80-94) fl Plt Count 145 123 L (130-400) 10^3/cmm Neut % (Auto) 81.7 74.2 % Neut # (Auto) 9.52 H 6.13 (1.8-7.7) 10^3/uL BMP 06/06/21 06/07/21 17:45 02:24 Sodium 137 138 Potassium 3.9 4.4 Chloride 103 104 Carbon Dioxide 24 24 BUN 20 22 Creatinine 1.1 1.2 Glucose 120 H 117 H Calcium 9.7 8.9 Liver Function 06/06/21 06/07/21 Range/Units 17:45 02:24 Total Bilirubin 0.5 0.6 (0.15-1.2) mg/dL AST 32 31 (0-40) U/L ALT 25 24 (0-41) U/L Alkaline Phosphatase 158 H 134 H (40-130) IU/L Albumin 4.4 3.7 (3.5-5.2) g/dL Coags 06/06/21 17:45 PT 14.00 INR 1.05 Cardiac Studies: No Data to Display
[2021-06-07] MEDS: acetaminophen 325 mg Tablet 650 MG PO (12:38)
--- NOTE | 2021-06-07 14:28 | ANE.PACU2 ---
Inpatient post-anesthesia follow up: Airway intact: Yes Vital signs: Temperature 97.8 F Pulse Rate 93 Respiratory Rate 15 Blood Pressure 121/71 Pulse Oximetry 96 Oxygen Delivery Me thod Nasal Cannula Oxygen Flow Rate 3.5 Fraction of Inspir ed Oxygen Hydration adequate: Yes Nausea and vomiting: No Pain level: 6 Mental status: Baseline
[2021-06-07] MEDS: enoxaparin 40 mg/0.4 mL Syringe SUBCUT (20:13)
[2021-06-07] MEDS: atorvastatin 40 mg Tablet 20 MG PO (20:14)
[2021-06-07] MEDS: ipratropium-albuterol 3 mL Neb INHALATION (20:25)
[2021-06-07] MEDS: NON-FORMULARY MEDICATION (Umeclidinium [Incruse Ellipta] 62.5 mcg/actuation blister with d 1 EACH INHALATION (21:59)
[2021-06-08] VITALS (10 sets, daily range): BP systolic 104–120; BP diastolic 56–74; PULSE 62–91; RESP 16–22; TEMP 36.6–36.9; O2SAT 87–96
[2021-06-08 05:39] LABS: Basophils % 0.1 %; Hematocrit 26.1 % (42.0-52.0); Hemoglobin 8.5 g/dL (11.7-16.6); Lymphocytes % 11.4 %; Mean Corpuscular HGB Conc 32.6 g/dL (30.0-36.0); Mean Corpuscular Hemoglobin 36.5 pg (28.0-34.0); Monocytes # 0.2 10^3/uL (0.2-0.9); Monocytes % 2.5 %; Neutrophils # 7.55 10^3/uL (1.8-7.7); Neutrophils % 85.4 %; Nucleated Red Blood Cells % 0 %; Platelet Count 123 10^3/cmm (130-400); Red Blood Count 2.33 10^6/uL (4.1-5.3); Red Cell Distribution Width 15.9 % (12.1-15.1); White Blood Count 8.8 10^3/uL (4.0-10.0)
[2021-06-08 05:58] LABS: Anion Gap 13.1 (5-19); Blood Urea Nitrogen 24 mg/dL (8-23); Calcium 8.8 mg/dL (8.5-10.5); Carbon Dioxide 23 mmol/L (22-29); Chloride 105 mmol/L (98-107); Glucose 160 mg/dL (65-115); Magnesium 2.2 mg/dL (1.7-2.3); Osmolality Calculated 291 mOsm/kg (285-295); Potassium 4.1 mmol/L (3.5-5.1); Sodium 137 mmol/L (136-145)
[2021-06-08 05:59] LABS: Estmated Average Glucose 111; Hemoglobin A1C 5.5 % (4.0-6.0)
[2021-06-08] MEDS: HYDROcodone-acetaminophen 5-325 mg Tablet PO ×3 (07:38→15:45)
[2021-06-08] MEDS: cyanocobalamin 1,000 mcg Tablet 1000 MCG PO (07:38)
[2021-06-08] MEDS: folic acid 1 mg Tablet PO (07:39)
[2021-06-08] MEDS: aspirin 81 mg EC Tablet PO (07:39)
[2021-06-08] MEDS: sennosides-docusate Tablet 1 TAB PO ×2 (07:39→15:45)
--- NOTE | 2021-06-08 07:54 | P.PN_ITS ---
Subjective Subjective: POD 1 Patient resting comfortably. Some mild left hip pain reported. Denies any shortness of breath or chest pain. Vitals/I&O/Wt Last Vital Signs Temp 98.0 F 06/08/21 07:16 Pulse 62 06/08/21 07:16 Resp 17 06/08/21 07:16 BP 104/60 06/08/21 07:16 Pulse Ox 95 06/08/21 07:16 06/07/21 06/08/21 06/08/21 22:59 06:59 14:59 Intake Total 110 / 950 60 / 1010 60 / 60 Output Total 325 / 575 375 / 950 Balance -215 / 375 -315 / 60 60 / 60 Weight last 48 hrs Weight 130 lb Weight 125 lb Physical Exam Narrative: Patient is alert and orient x3 has good general appearance normal normal affect. Left hip incision is clean and dry. There is no signs of erythema or drainage no signs of infection. Good motor strength throughout both lower extremities. Fires in all motor groups. Skin is clear warm, feet are warm with good cap refill in all digits. Normal sensation to light touch. Calv es are supple, no medial thigh tenderness, negative Homans' sign. No palpable edema peripherally. Data : 06/08/21 04:45 06/08/21 04:45 A&P Assessment and plan (1) Intertrochanteric fracture of left hip: Physical therapy to evaluate and proceed with weightbearing as tolerated left lower extremity. The services to help with placement. Continue incentive spirometry for pulmonary toilet. Status: Acute Qualifiers: Encounter type: initial encounter Fracture type: closed Fracture alignment: displaced Qualified Code(s): S72.142A - Displaced intertrochanteric fracture of left femur, initial encounter for closed fracture Attestations Medical Necessity Statement*: Defer to medical team Coding Level of Care Code Acute Environmental Monitoring Specialist for [facility] Diagnoses Intertrochanteric fracture of left hip S72.142A Encounter type: initial encounter Fracture type: closed Fracture alignment: displaced
[2021-06-08] MEDS: ipratropium-albuterol 3 mL Neb INHALATION ×2 (08:04→14:45)
--- NOTE | 2021-06-08 18:40 | P.PN_ITS ---
Subjective Subjective: Doing OK. Lt hip pain present. , Denies CP, SOB, cough Vitals/I&O/Wt Last Vital Signs Temp 98.5 F 06/08/21 15:50 Pulse 91 06/08/21 15:50 Resp 17 06/08/21 15:50 BP 120/74 06/08/21 15:50 Pulse Ox 96 06/08/21 15:50 06/08/21 06/08/21 06/08/21 06:59 14:59 22:59 Intake Total 60 / 1010 1020 / 1020 Output Total 375 / 950 300 / 300 Balance -315 / 60 1020 / 1020 -300 / 720 Weight last 48 hrs Weight 58.967 kg Physical Exam Narrative: Constitutional: Awake and alert, answers questions HEENT: History of prior left eye enucleation evident but otherwise normocephalic, moist mucous membranes Respiratory: Scattered wheezes, no accessory muscle use noted Cardiovascular: Regular rhythm Abdomen: Soft, nontender, positive bowel sounds Extremities: Dressing intact to left lateral hip area, ice in place, SCDs in place Neuro: Speech clear, wiggles toes bilaterally and strength is grossly equal at both feet and hands Data : 06/08/21 04:45 06/08/21 04:45 A&P Assessment and plan (1) Intertrochanteric fracture of left hip: Hip pain. S/P ORIF Status: Acute Qualifiers: Encounter type: initial encounter Fracture type: closed Fracture alignment: displaced Qualified Code(s): S72.142A - Displaced intertrochanteric fracture of left femur, initial encounter for closed fracture (2) Chronic kidney disease (CKD): stable Status: Chronic Qualifiers: Chronic kidney disease stage: stage 2 (mild) Qualified Code(s): N18.2 - Chronic kidney disease, stage 2 (mild) (3) Mild aortic stenosis: stable Status: Chronic (4) Diabetes mellitus: on SSI Status: Chronic (5) Macrocytic anemia: asymp Status: Acute (6) CAD (coronary artery disease): stable Status: Chronic Qualifiers: Coronary Disease-Associated Artery/Lesion type: [place] artery [place] vs. transplanted heart: [place] heart Associated angina: without angina Qualified Code(s): I25.10 - Atherosclerotic heart disease of [place] coronary artery without angina pectoris (7) COPD (chronic obstructive pulmonary disease): Status: Chronic Qualifiers: COPD type: emphysema Emphysema type: panlobular Qualified Code(s): J43.1 - Panlobular emphysema (8) Rheumatoid arthritis with rheumatoid factor of multiple sites without organ or systems involvement: Status: Chronic Plan PT/OT Pain management DVT Prophylaxis Ref to SNF and transfer when bed available Attestations Medical Necessity Statement*: Requires ongoing inpatient stay for continued m anagement post surgical repair of hip fracture.? Other care as noted above.? With comorbid conditions of risk of rapid clinical decline Time Spent in Patient Care: 40 min Coding Level of Care Code Acute Jewel Hole Finish Opener for [facility] Fwd Diagnoses Intertrochanteric fracture of left hip S72.142A Encounter type: initial encounter Fracture type: closed Fracture alignment: displaced Chronic kidney disease (CKD) N18.2 Chronic kidney disease stage: stage 2 (mild) Mild aortic stenosis I35.0 Diabetes mellitus E11.9 Macrocytic anemia D53.9 CAD (coronary artery disease) I25.10 Coronary Disease-Associated Artery/Lesion type: [place] artery [place] vs. 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
[2021-06-08] MEDS: albuterol 8 gm MDI 2 PUFF INHALATION (20:32)
[2021-06-08] MEDS: enoxaparin 40 mg/0.4 mL Syringe SUBCUT (20:54)
[2021-06-08] MEDS: ondansetron 2 mg/ML SDV 2 mL 4 MG IVP (20:58)
[2021-06-08] MEDS: sodium chloride 0.9% 1,000 ML 30 ML IV (20:59)
[2021-06-08] MEDS: atorvastatin 40 mg Tablet 20 MG PO (22:55)
[2021-06-09] VITALS (9 sets, daily range): BP systolic 92–129; BP diastolic 49–76; PULSE 66–88; RESP 16–18; TEMP 36.6–36.9; O2SAT 90–97
[2021-06-09] MEDS: cyanocobalamin 1,000 mcg Tablet 1000 MCG PO (08:10)
[2021-06-09] MEDS: sennosides-docusate Tablet 1 TAB PO ×2 (08:10→17:17)
[2021-06-09] MEDS: folic acid 1 mg Tablet PO (08:10)
[2021-06-09] MEDS: HYDROcodone-acetaminophen 5-325 mg Tablet PO ×2 (08:10→21:37)
[2021-06-09] MEDS: aspirin 81 mg EC Tablet PO (08:10)
--- NOTE | 2021-06-09 08:18 | PM.PN ---
Subjective Subjective: POD 2 Patient resting comfortably. Reports improvement of his hip pain. Denies any shortness of breath or chest pain. Vitals/I&O/Wt Last Vital Signs Temp 98 F 06/09/21 07:50 Pulse 77 06/09/21 07:50 Resp 18 06/09/21 07:50 BP 98/64 06/09/21 07:50 Pulse Ox 96 06/09/21 07:50 06/08/21 06/09/21 06/09/21 22:59 06:59 14:59 Intake Total 1240 / 2260 Output Total 800 / 800 400 / 1200 Balance 440 / 1460 -400 / 1060 Physical Exam Narrative: Patient is alert a nd orient x3 has g ood general appear ance normal normal affect.? Left hip incision is clean and dry.? There i s no signs of eryt margie or drainage n o signs of infecti on.? Good motor st rength throughout both lower extremi ties.? Fires in al l motor groups.? S kin is clear warm, feet are warm wit h good cap refill in all digits.? No rmal sensation to light touch.? Calv es are supple,? no medial thigh tend erness, negative H omans' sign.? No p alpable edema zulema pherally. Data : 06/08/21 04:45 06/08/21 04:45 A&P Assessment and plan (1) Intertrochanteric fracture of left hip: Continue physical therapy evaluation mobility mobilization. Okay from orthopedic standpoint discharge when medically stable. Return to the office in 2 weeks time for staple removal. Please change dressings with application of [place] dressing. Status: Acute Qualifiers: Encounter type: initial encounter Fracture type: closed Fracture alignment: displaced Qualified Code(s): S72.142A - Displaced intertrochanteric fracture of left femur, initial encounter for closed fracture Attestations Medical Necessity Statement*: Defer to medical team Coding Level of Care Code Acute Human Relations Teacher for Cathie Gonzalez Diagnoses Intertrochanteric fracture of left hip S72.142A Encounter type: initial encounter Fracture type: closed Fracture alignment: displaced
[2021-06-09] MEDS: ondansetron 2 mg/ML SDV 2 mL 4 MG IVP (08:24)
[2021-06-09] MEDS: albuterol 8 gm MDI 2 PUFF INHALATION ×3 (08:57→21:48)
[2021-06-09] MEDS: acetaminophen 325 mg Tablet 650 MG PO ×2 (11:10→17:17)
--- NOTE | 2021-06-09 12:11 | PC.SOCIAL ---
Pg 2 IMM Explained to pt Pg 2 IMM. No questions voiced. Provided pt a copy. Initialed, dated, & timed a copy & placed in chart.
[2021-06-09] MEDS: nicotine 21 mg Patch 1 PATCH TRANSDERMA (13:56)
--- NOTE | 2021-06-09 18:09 | PM.PN ---
Vitals/I&O/Wt Last Vital Signs Temp 98.5 F 06/09/21 15:28 Pulse 75 06/09/21 16:57 Resp 18 06/09/21 16:57 BP 96/63 06/09/21 15:28 Pulse Ox 92 06/09/21 16:57 06/09/21 06/09/21 06/09/21 06:59 14:59 22:59 Intake Total 240 / 240 Output Total 400 / 1200 175 / 175 250 / 425 Balance -400 / 1060 65 / 65 -250 / -185 Physical Exam Narrative: Constitutional: Awake and alert, answers questions HEENT: History of prior left eye enucleation evident but otherwise normocephalic, moist mucous membranes Respiratory: Scattered wheezes, no accessory muscle use noted Cardiovascular: Regular rhythm Abdomen: Soft, nontender, positive bowel sounds Extremities: Dressing intact to left lateral hip area, ice in place, SCDs in place Neuro: Speech clear, wiggles toes bilaterally and strength is grossly equal at both feet and hand Data : 06/08/21 04:45 06/08/21 04:45 A&P Assessment and plan (1) Macrocytic anemia: Asymp Status: Acute (2) Intertrochanteric fracture of left hip: s/p ORIF Tolerating PT Status: Acute Qualifiers: Encounter type: initial encounter Fracture type: closed Fracture alignment: displaced Qualified Code(s): S72.142A - Displaced intertrochanteric fracture of left femur, initial encounter for closed fracture (3) Chronic kidney disease (CKD): CRI St 2 Status: Chronic Qualifiers: Chronic kidney disease stage: stage 2 (mild) Qualified Code(s): N18.2 - Chronic kidney disease, stage 2 (mild) (4) Mild aortic stenosis: Status: Chronic (5) Diabetes mellitus: SSI Status: Chronic (6) Tobacco abuse: Status: Chronic (7) Ischemic cardiomyopathy: Status: Chronic (8) Dyslipidemia: Status: Chronic (9) CAD (coronary artery disease): stable Status: Chronic Qualifiers: Coronary Disease-Associated Artery/Lesion type: [place] artery [place] vs. transplanted heart: [place] heart Associated angina: without angina Qualified Code(s): I25.10 - Atherosclerotic heart disease of [place] coronary artery without angina pectoris (10) COPD (chronic obstructive pulmonary disease): stable Status: Chronic Qualifiers: COPD type: emphysema Emphysema type: panlobular Qualified Code(s): J43.1 - Panlobular emphysema (11) Rheumatoid arthritis with rheumatoid factor of multiple sites without organ or systems involvement: stable Status: Chronic Plan Poss d/c tomorrow w/ HH PT Pain management Attestations Medical Necessity Statement*: Requires ongoing inpatient stay for continued management post surgical repair of hip fracture.? Other care as noted above.? With comorbid conditions of risk of rapid clinical decline Time Spent in Patient Care: 40 min Coding Level of Care Code Acute Drawing Frame Tender for [facility] Fwd Diagnoses Macrocytic anemia D53.9 Intertrochanteric fracture of left hip S72.142A Encounter type: initial encounter Fracture type: closed Fracture alignment: displaced Chronic kidney disease (CKD) N18.2 Chronic kidney disease stage: stage 2 (mild) Mild aortic stenosis I35.0 Diabetes mellitus E11.9 Tobacco abuse Z72.0 Ischemic cardiomyopathy I25.5 Dyslipidemia E78.5 CAD (coronary artery disease) I25.10 Coronary Disease-Associated Artery/Lesion type: [place] artery [place] vs. 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
[2021-06-09] MEDS: enoxaparin 40 mg/0.4 mL Syringe SUBCUT (21:36)
[2021-06-09] MEDS: atorvastatin 40 mg Tablet 20 MG PO (21:37)
[2021-06-10] VITALS (7 sets, daily range): BP systolic 98–114; BP diastolic 65–74; PULSE 70–90; RESP 16–18; TEMP 36.1–36.6; O2SAT 92–98
[2021-06-10] MEDS: sodium chloride 0.9% 1,000 ML 30 ML IV (07:48)
[2021-06-10] MEDS: fluticasone nasal spray 16gm Btl 1 SPRAY INTRANASAL (08:01)
[2021-06-10] MEDS: bisacodyl 5 mg Tablet 10 MG PO (08:01)
[2021-06-10] MEDS: sennosides-docusate Tablet 1 TAB PO (08:02)
[2021-06-10] MEDS: folic acid 1 mg Tablet PO (08:02)
[2021-06-10] MEDS: cyanocobalamin 1,000 mcg Tablet 1000 MCG PO (08:02)
[2021-06-10] MEDS: HYDROcodone-acetaminophen 5-325 mg Tablet PO (08:02)
[2021-06-10] MEDS: nicotine 21 mg Patch 1 PATCH TRANSDERMA (08:02)
[2021-06-10] MEDS: aspirin 81 mg EC Tablet PO (08:02)
[2021-06-10] MEDS: albuterol 8 gm MDI 2 PUFF INHALATION (08:28)
--- NOTE | 2021-06-10 11:10 | P.DS_ITS ---
Discharge Providers Date of Admission: 06/06/21 17:33 Date of Discharge: June 10, 2021 Attending Provider at Admission: Aditya Beck Attending Provider at Discharge: Jesusita Parra MD Primary Care Provider: Maria Del Carmen London MD Diagnoses at Discharge Discharge Diagnosis (1) Macrocytic anemia: Status: Acute (2) Intertrochanteric fracture of left hip: Status: Acute Qualifiers: Encounter type: initial encounter Fracture type: closed Fracture alignment: displaced Qualified Code(s): S72.142A - Displaced intertrochanteric fracture of left femur, initial encounter for closed fracture (3) Chronic kidney disease (CKD): Status: Chronic Qualifiers: Chronic kidney disease stage: stage 2 (mild) Qualified Code(s): N18.2 - Chronic kidney disease, stage 2 (mild) (4) Mild aortic stenosis: Status: Chronic (5) Diabetes mellitus: Status: Chronic (6) Tobacco abuse: Status: Chronic (7) Ischemic cardiomyopathy: Status: Chronic (8) Dyslipidemia: Status: Chronic (9) CAD (coronary artery disease): Status: Chronic Qualifiers: Coronary Disease-Associated Artery/Lesion type: [place] artery [place] vs. transplanted heart: [place] heart Associated angina: without angina Qualified Code(s): I25.10 - Atherosclerotic heart disease of [place] coronary artery without angina pectoris (10) COPD (chronic obstructive pulmonary disease): Status: Chronic Qualifiers: COPD type: emphysema Emphysema type: panlobular Qualified Code(s): J43.1 - Panlobular emphysema (11) Rheumatoid arthritis with rheumatoid factor of multiple sites without organ or systems involvement: Status: Chronic Reason for Visit Reason for Visit: LEFT HIP PAIN S/P FALL Hospital Course Hospital Course Pleasant 80-year-old gentleman with history of CAD, with LAD stenting about 13 years ago, with COPD, not normally on supplemental oxygen, but with quite significant exertional dyspnea, states that if he walked out to the nursing station and back he would have to stop and rest, with rheumatoid arthritis, with intermittent prednisone therapy, currently taking it only as needed, not taking at the moment, current smoker, states smoking 1.5-1 pack/day, says that 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 With finding of left hip fracture in ER orthopedics is consulted. Pt was admitted to [facility]. Orthopedic consult was obtained. Pt was taken to OR to repair his Lt Hip Fx by ORIF. Pt had an uncomplicated procedure. He received PT and was ambulating w/ WW 100 ft. Pain was controlled. He will be d/c home w/ HH and PT/OT. Will f/u w/ his orthopedist in 2 wks and will have his mary removed then. Physical Exam Narrative: Constitutional: Awake and alert, answers questions HEENT: History of prior left eye enucleation evident but otherwise normocephalic, moist mucous membranes Respiratory: Scattered wheezes, no accessory muscle use noted Cardiovascular: Regular rhythm Abdomen: Soft, nontender, positive bowel sounds Extremities: Dressing intact to left lateral hip area, ice in place, SCDs in place Neuro: Speech clear, wiggles toes bilaterally and strength is grossly equal at both feet and hand Discharge Data Studies Completed and Pending Completed Studies During Hospitalization Category Date Time Status CXRP [XR chest 1V portable [id number]] Stat Exams 06/06/21 17:16 Completed XR hip LT 1V wo/w pel [id number] Routine Exams 06/07/21 08:10 Completed XR hip LT 2-3V wo/w pel* [id number] Stat Exams 06/06/21 17:16 Completed Radiology Impressions Chest X-Ray 06/06/21 17:16 IMPRESSION: No acute findings. Hip/Pelvis X-Ray 06/06/21 17:16 IMPRESSION: Intertrochanteric mildly displaced left hip fracture. Laboratory Results WBC 8.8 10^3/uL (4.0-10.0) 06/08/21 04:45 RBC 2.33 10^6/uL (4.1-5.3) L 06/08/21 04:45 Hgb 8.5 g/dL (11.7-16.6) L 06/08/21 04:45 Hct 26.1 % (42.0-52.0) L 06/08/21 04:45 MCV 112.0 fl (80-94) H 06/08/21 04:45 MCH 36.5 pg (28.0-34.0) H 06/08/21 04:45 MCHC 32.6 g/dL (30.0-36.0) 06/08/21 04:45 RDW 15.9 % (12.1-15.1) H 06/08/21 04:45 Plt Count 123 10^3/cmm (130-400) L 06/08/21 04:45 MPV 11.0 fL (7.4-10.4) H 06/08/21 04:45 Neut % (Auto) 85.4 % 06/08/21 04:45 Lymph % (Auto) 11.4 % 06/08/21 04:45 [place] % (Auto) 2.5 % 06/08/21 04:45 Eos % (Auto) 0.0 % 06/08/21 04:45 Baso % (Auto) 0.1 % 06/08/21 04:45 Neut # (Auto) 7.55 10^3/uL (1.8-7.7) 06/08/21 04:45 Lymph # (Auto) 1.0 10^3/uL (0.8-4.8) 06/08/21 04:45 [place] # (Auto) 0.2 10^3/uL (0.2-0.9) 06/08/21 04:45 Eos # (Auto) 0.0 10^3/uL (0.0-0.8) 06/08/21 04:45 Baso # (Auto) 0.0 10^3/uL (0.0-0.1) 06/08/21 04:45 Nucleated RBC % (auto) 0 % 06/08/21 04:45 Nucleated RBCs # 0.0 /100WBC 06/08/21 04:45 PT 14.00 SECONDS (12.1-14.9) 06/06/21 17:45 INR 1.05 (0.8-1.2) 06/06/21 17:45 Sodium 137 mmol/L (136-145) 06/08/21 04:45 Potassium 4.1 mmol/L (3.5-5.1) 06/08/21 04:45 Chloride 105 mmol/L (98-107) 06/08/21 04:45 Carbon Dioxide 23 mmol/L (22-29) 06/08/21 04:45 Anion Gap 13.1 (5-19) 06/08/21 04:45 BUN 24 mg/dL (8-23) H 06/08/21 04:45 Creatinine 1.1 mg/dL (0.7-1.2) 06/08/21 04:45 GFR Calculation Not Reportable 06/08/21 04:45 Glucose 160 mg/dL (65-115) H 06/08/21 04:45 Estimat Average Glucose 111 06/08/21 04:45 Hemoglobin A1c 5.5 % (4.0-6.0) 06/08/21 04:45 Calculated Osmolality 291 mOsm/kg (285-295) 06/08/21 04:45 Calcium 8.8 mg/dL (8.5-10.5) 06/08/21 04:45 Magnesium 2.2 mg/dL (1.7-2.3) 06/08/21 04:45 Total Bilirubin 0.6 mg/dL (0.15-1.2) 06/07/21 02:24 AST 31 U/L (0-40) 06/07/21 02:24 ALT 24 U/L (0-41) 06/07/21 02:24 Alkaline Phosphatase 134 IU/L (40-130) H 06/07/21 02:24 Total Protein 6.4 g/dL (6.6-8.7) L 06/07/21 02:24 Albumin 3.7 g/dL (3.5-5.2) 06/07/21 02:24 Globulin 2.7 g/dL (1.3-4.6) 06/07/21 02:24 Vitals Last Vital Signs Temp 97.0 F L 06/10/21 11:06 Pulse 90 06/10/21 11:06 Resp 16 06/10/21 11:06 BP 98/65 06/10/21 11:06 Pulse Ox 98 06/10/21 11:06 Discharge Plan Discharge Patient Disposition: Home Health Service Condition: Stable Prescriptions: New hydrocodone-acetaminophen 5-325 mg Tablet 1 - 2 tab PO Q4H PRN (Reason: Breakthrough Pain) 30 Days 0RF ferrous sulfate 300 mg (60 mg iron)/5 mL Liquid 300 mg PO BIDWM Qty: 120 0RF acetaminophen 325 mg Tablet 650 mg PO Q6H PRN (Reason: Mild/Mod Pain Or Temp >/= 101) Qty: 100 0RF sennosides-docusate sodium [Stool Softener-Laxative] 8.6-50 mg Tablet 1 tab PO BID Qty: 60 0RF cyanocobalamin (vitamin B-12) [Vitamin B-12] 1,000 mcg Tablet 1,000 mcg PO DAILY Qty: 30 0RF Continued albuterol sulfate [ProAir HFA] 90 mcg/actuation HFA aerosol inhaler 2 puff INHALATION Q6H PRN (Reason: Shortness Of Breath) 0RF fluticasone propion-salmeterol [Advair Diskus] 250-50 mcg/dose blister with device 1 inh INHALATION BID 0RF aspirin [Adult Aspirin Regimen] 81 mg tablet,delayed release (DR/EC) 81 mg PO DAILY 0RF Incruse Ellipta 62.5 mcg/actuation blister with device 1 inh INHALATION Q24H 0RF Atrovent HFA 17 mcg/actuation HFA aerosol inhaler 1 puff INHALATION QID PRN (Reason: Shortness Of Breath) 0RF methotrexate sodium 2.5 mg tablet See Rx Instructions PO .COMPLEX Qty: 35 4RF Rx Instructions: take 4 tabs in am and 3 tabs in pm on same day (17.5mg) once a week PO; folic acid 1 mg tablet 1 mg PO DAILY Qty: 90 3RF Humira(CF) Pen 40 mg/0.4 mL pen injector kit 40 mg SUBCUT Q14D Qty: 2 3RF Miralax 17 gram/dose Powder 17 g PO DAILY PRN (Reason: Constipation) 0RF Flonase 50 mcg/actuation [place],Suspension 1 spray INTRANASAL DAILY PRN (Reason: Nasal Congestion) 0RF Rx Instructions: administer into each nostril simvastatin 40 mg tablet 40 mg PO BEDTIME 0RF diclofenac sodium 1 % gel 2 g topical QID PRN (Reason: Pain) 0RF Rx Instructions: apply to affected area as needed Discontinued prednisone 5 mg tablet See Rx Instructions PO DAILY Qty: 30 0RF Rx Instructions: Take two tabs a day for 3-5 days prn flares PO daily; Discharge Orders: Discharge Order (Routine); Ordered 06/10/21 Ordered By: Jesusita Parra Other Ambulatory Orders: DME: Walker (Order) Location: None Selected Ordered By: Pineda Mancilla [place] [facility] [place] [facility] [place]] [facility] [Referring] - Discharge Diet: Usual diet Discharge Activity: As per PT/OT instructions Patient Instructions: Opioid Safety Activity Restrictions/Additional Instructions: You are being discharged from the hospital today during which time you have been under the care of Dr Mancilla. You had a hip fracture. You were treated for this injury with IM Nail. You may resume you normal diet (including any special diets as directed by your primary doctor) as well as your home medications. You should follow up with you primary doctor if you have any questions regarding medication you took prior to your stay in the hospital. You may take your pain medication as prescribed. After the first few days, take your pain medication as needed. Do not drive or drink alcohol while taking your pain medication. Your injury may increase your risk of developing a blood clot,or DVT, in your arm or leg. This could potentially dislodge and travel to your lungs and become a life threatening condition called apulmonary embolus,or PE. You have been prescribed Asprin to be taken to prevent this. Frequent movement of the legs will also help prevent this from occurring. If you develop any new or worsening cough, chestpain, bloody sputum or shortness of breath, call 911 or go to the EmergencyRoom. Always keep your surgical incision/dressing clean and dry. If you experience increasing pain at your incision site, redness, swelling, increasing discharge, foul odors, or fevers (greater than 100.4), night sweats or chills you should call the office at the above number. If you feel this is an emergency you should be evaluated in the Emergency Department of a nearby hospital. Orthopedic Patient Instructions Summary: Weight Bearing: wbat Activity: as tolerated. Diet: regular. Wound Care: Keep dressing clean and dry. change as needed Anticoagulation: ASA Pain Medication: Take only as needed. Ice, rest and elevation will be of great benefit. Please plan to follow-up wlth Dr Mancilla in 2 weeks. You will need to call the clinic [phone] to schedule this visit. Thank you far allowing me to participate in your care. Do not hesitate to call the office with any questions or concerns. Discharge Attestations Time Spent in Discharge Care*: greater than 30 min Quality Metrics Clinical Quality Measures [ No reported AMI, CVA or VTE this stay] Coding Level of Care Code Acute Chg FW DC note Diagnoses Macrocytic anemia D53.9 Intertrochanteric fracture of left hip S72.142A Encounter type: initial encounter Fracture type: closed Fracture alignment: displaced Chronic kidney disease (CKD) N18.2 Chronic kidney disease stage: stage 2 (mild) Mild aortic stenosis I35.0 Diabetes mellitus E11.9 Tobacco abuse Z72.0 Ischemic cardiomyopathy I25.5 Dyslipidemia E78.5 CAD (coronary artery disease) I25.10 Coronary Disease-Associated Artery/Lesion type: [place] artery [place] vs. 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
[2021-06-10] MEDS: acetaminophen 325 mg Tablet 650 MG PO (12:36)
--- NOTE | 2021-06-10 16:29 | PC.NURSE ---
[facility] called about missing a quantity on the hydrocodone script that was sent to them. This nurse called Dr. Torre to clarify prescription ,he stated quantity of 30 tablets. This information given to [facility].
== END 2021-06-10 15:15 | disposition home health service (06) | DRG 482 ==
LOC: ER 18:22 → MEDSURG 19:48
PROVIDERS: Hospitalist; Orthopaedic Surgery; Admitting Provider Internal Medicine; Emergency Provider Emergency Medicine; PCP Family Medicine; Visit Provider Internal Medicine
PROC: 0QS706Z Reposition Left Upper Femur with Intramedullary Internal Fixation Device, Open Approach (ICD-10-PCS; CPT 27245; principal; 2021-06-07 14:50)
DX: S72.142A Displaced intertrochanteric fracture of left femur, initial encounter for closed fracture (principal); W01.0XXA Fall on same level from slipping, tripping and stumbling without subsequent striking against object, initial encounter; I25.10 Atherosclerotic heart disease of native coronary artery without angina pectoris; Z95.5 Presence of coronary angioplasty implant and graft; F17.210 Nicotine dependence, cigarettes, uncomplicated; J43.1 Panlobular emphysema; M05.79 Rheumatoid arthritis with rheumatoid factor of multiple sites without organ or systems involvement; E11.22 Type 2 diabetes mellitus with diabetic chronic kidney disease; I12.9 Hypertensive chronic kidney disease with stage 1 through stage 4 chronic kidney disease, or unspecified chronic kidney disease; N18.2 Chronic kidney disease, stage 2 (mild); E78.5 Hyperlipidemia, unspecified; I25.5 Ischemic cardiomyopathy; D53.9 Nutritional anemia, unspecified; D69.6 Thrombocytopenia, unspecified; Z79.4 Long term (current) use of insulin; Z79.82 Long term (current) use of aspirin; Z79.51 Long term (current) use of inhaled steroids; I35.0 Nonrheumatic aortic (valve) stenosis
CPT/HCPCS: 36415; 71045; 73501; 73502; 76000; 80048; 80053; 83036; 83735; 85025; 85610; 93005; 94640; 96372; 96374; 96375; 96376; 97116; 97161; 97167; 97530; 99285; C1713; J0690; J1100; J1650; J2270; J2370; J2405; J2704; J3010; J3535; J7030

== ENCOUNTER → 2021-06-22 15:01 | Outpatient (BNVA) | payer MEDICARE, MEDICAID, SELFPAY | PROVIDERS: PCP Family Medicine; Visit Provider Orthopaedic Surgery | DX: S72.142D Displaced intertrochanteric fracture of left femur, subsequent encounter for closed fracture with routine healing (principal); X58.XXXD Exposure to other specified factors, subsequent encounter | CPT/HCPCS: 73502; 99024 ==

== ENCOUNTER 2021-06-26 17:21 | Emergency (ER) | payer MEDICARE, MEDICAID, SELFPAY ==
[2021-06-26 17:24] VITALS: BP 101/72; PULSE 100; RESP 22; TEMP 36.7; O2SAT 94; BMI 18.6
--- NOTE | 2021-06-26 17:36 | XRR_ITS ---
PROCEDURE INFORMATION: Exam: XR Chest Exam date and time: 06/26/2021 5:46 PM Age: 80 years old Clinical indication: Cough TECHNIQUE: Imaging protocol: XR of the chest. Views: 1 view. COMPARISON: CR (CHEST, ) 06/06/2021 5:23 PM FINDINGS: Lungs: Right hilar to lower lobe atelectasis versus infiltrate. Pleural spaces: Unremarkable. No pleural effusion. No pneumothorax. Heart/Mediastinum: Unremarkable. No cardiomegaly. Bones/joints: Unremarkable. XR/XR chest 1V portable [id number] IMPRESSION: Right hilar to lower lobe atelectasis versus infiltrate.
[2021-06-26 17:44] LABS: Basophils # 0.1 10^3/uL (0.0-0.1); Basophils % 0.3 %; Eosinophils # 0.1 10^3/uL (0.0-0.8); Eosinophils % 0.5 %; Hematocrit 28.7 % (42.0-52.0); Hemoglobin 9.1 g/dL (11.7-16.6); Mean Corpuscular HGB Conc 31.7 g/dL (30.0-36.0); Mean Corpuscular Hemoglobin 36.3 pg (28.0-34.0); Mean Corpuscular Volume 114.3 fl (80-94); Mean Platelet Volume 10.7 fL (7.4-10.4); Monocytes # 1.6 10^3/uL (0.2-0.9); Monocytes % 8.2 %; Neutrophils # 16.21 10^3/uL (1.8-7.7); Neutrophils % 84.3 %; Nucleated Red Blood Cells % 0 %; Platelet Count 150 10^3/cmm (130-400); Red Blood Count 2.51 10^6/uL (4.1-5.3); Red Cell Distribution Width 16.1 % (12.1-15.1); White Blood Count 19.2 10^3/uL (4.0-10.0)
--- NOTE | 2021-06-26 17:47 | ED_ITS ---
HPI - General Adult General: Chief complaint: Weakness Stated complaint: WEAKNESS Time Seen by Provider: 06/26/21 17:38 History of Present Illness: Patient is 80-year-old male with a history of COPD, smoking presenting to the emergency room with complaints of 3 days of productive cough, chills and generalized weakness. Per family, patient recently underwent L hip surgery with Dr. Mancilla on 06/07/2021 and has since then been doing well. Patient denies any active chest pain, pleuritic chest pain, no complaints with nausea/vomiting, fever, diarrhea, melena/hematochezia. No sick contacts at home. Onset:3 days ago Duration:3 maria Location: home Severity:moderate Associated symptoms: Reports dyspnea; Deny chest pain, nausea, rash, palpitations or vomiting Review of Systems Const: Reports: other (+generalized weakness); Denies: fever(s) or chills Eyes: Denies: change in vision ENMT: Denies: mouth pain Card: Denies: chest pain or palpitations Resp: Reports: dyspnea and productive cough GI: Denies: abdominal pain, nausea, vomiting or diarrhea : Denies: dysuria Musc: Denies: extremity pain Skin/Breast: Denies: rash or new lesions Neuro: Denies: weakness in extremities Psych: Reports: other (Normal mood) Joshua/Lymph: Denies: easy bruising PFSH ED PFSH: Medical History CAD (coronary artery disease) Chronic kidney disease (CKD) COPD (chronic obstructive pulmonary disease) Diabetes mellitus Dyslipidemia Gout, unspecified High risk medication use History of anterior wall myocardial infarction Ischemic cardiomyopathy Mild aortic stenosis Presence of stent in LAD coronary artery Rheumatoid arthritis with rheumatoid factor of multiple sites without organ or systems involvement Tobacco abuse Surgical History H/O bilateral cataract extraction History of eye evisceration Stented coronary artery Family History Denies family history of Rheumatoid arthritis Lupus Social History Smoking and tobacco status: current every day smoker cigarettes Packs smoked per day: 1.5 Years cigarettes smoked: 30 Alcohol intake: never Marital status: Physical Exam Const: COMMON NORMALS: alert HENMT: COMMON NORMALS: atraumatic HEAD & SCALP: atraumatic MOUTH: moist mucous membranes not abnormal Eye: COMMON NORMALS: EOMs intact bilaterally and conjunctivae normal CONJUNCTIVA: Yes conjunctivae normal Neck/C-Spine: COMMON NORMALS: full ROM and supple Resp: COMMON NORMALS: normal respiratory effort OTHER: +coarse breath sounds b/l Cardio: COMMON NORMALS: regular rate RATE: regular rate GI: COMMON NORMALS: Soft to palpation and non-tender PALPATION: Yes Soft to palpation Extremity: COMMON NORMALS: full ROM Neuro: SENSORIUM/ORIENTATION: Yes alert MOTOR EXAM: No Abnormal motor strength present and Other motor observations present (no focal motor deficits) Psych: COMMON NORMALS: speech normal SPEECH: Yes normal speech MOOD & AFFECT: Yes euthymic mood Course Vital Signs: Vital signs: Vital Signs Temperature 98.1 F 06/26/21 17:24 Pulse Rate 100 06/26/21 17:24 Respiratory Rate 22 H 06/26/21 17:24 Blood Pressure 101/72 06/26/21 17:24 Pulse Oximetry 94 06/26/21 17:24 [facility] - General Adult Medical Decision Making 80-year-old male with history of COPD, smoking presenting to the emergency room with dyspnea and productive cough x3 days with generalized weakness. On exam, patient is afebrile with coarse breath sounds. Patient has no increased work of breathing. Sats greater than 95% on room air. White count of 19.2 today. X- ray chest showed small right-sided pneumonia. Patient was offered breathing treatment was declined. Patient received 1.5 L of fluid for OTILIO on CKD. Patient received doxycycline and Augmentin in the emergency room for treatment of pneumonia. I have given patient strict return precaution for any drops in the pulse ox to less than 92% while on oxygen. I performed shared decision making with patient for admission versus discharge. I explained to the patient that since given his age and comorbidities, and findings of possible pneumonia, he is a candidate for admission. However, p atient reports desire to go home. We will try outpatient antibiotics first. Have given patient close follow-up with primary care provider in the next 3 to 4 days for reassessment. Patient declined breathing treatments again today. Patient elects to use his albuterol inhaler at home. Patient is aware that he has an OTILIO to 1.5 will need close follow-up with PCP after rehydration today. Rx augmentin and doxycycline for pneumonia Disposition: Discharge. Patient counseled regarding diagnostic impression, treatment plan. Patient given ED strict return precautions to return for continuation, worsening, or development of new symptoms. Instructed to f/u w/ PCP regarding symptoms today. Patient verbalized understanding. Patient family given strict return precaution for any signs of dyspnea, low high oxygen number or any new extremity complaints Lab Data : 06/26/21 17:36 06/26/21 17:36 Radiology Impressions Chest X-Ray 06/26/21 17:36 IMPRESSION: Right hilar to lower lobe atelectasis versus infiltrate. Laboratory Results WBC 19.2 10^3/uL (4.0-10.0) H 06/26/21 17:36 RBC 2.51 10^6/uL (4.1-5.3) L 06/26/21 17:36 Hgb 9.1 g/dL (11.7-16.6) L 06/26/21 17:36 Hct 28.7 % (42.0-52.0) L 06/26/21 17:36 MCV 114.3 fl (80-94) H 06/26/21 17:36 MCH 36.3 pg (28.0-34.0) H 06/26/21 17:36 MCHC 31.7 g/dL (30.0-36.0) 06/26/21 17:36 RDW 16.1 % (12.1-15.1) H 06/26/21 17:36 Plt Count 150 10^3/cmm (130-400) 06/26/21 17:36 MPV 10.7 fL (7.4-10.4) H 06/26/21 17:36 Neut % (Auto) 84.3 % 06/26/21 17:36 Lymph % (Auto) 5.0 % 06/26/21 17:36 [place] % (Auto) 8.2 % 06/26/21 17:36 Eos % (Auto) 0.5 % 06/26/21 17:36 Baso % (Auto) 0.3 % 06/26/21 17:36 Neut # (Auto) 16.21 10^3/uL (1.8-7.7) H 06/26/21 17:36 Lymph # (Auto) 1.0 10^3/uL (0.8-4.8) 06/26/21 17:36 [place] # (Auto) 1.6 10^3/uL (0.2-0.9) H 06/26/21 17:36 Eos # (Auto) 0.1 10^3/uL (0.0-0.8) 06/26/21 17:36 Baso # (Auto) 0.1 10^3/uL (0.0-0.1) 06/26/21 17:36 Nucleated RBC % (auto) 0 % 06/26/21 17:36 Nucleated RBCs # 0.0 /100WBC 06/26/21 17:36 Sodium 138 mmol/L (136-145) 06/26/21 17:36 Potassium 3.7 mmol/L (3.5-5.1) 06/26/21 17:36 Chloride 105 mmol/L (98-107) 06/26/21 17:36 Carbon Dioxide 22 mmol/L (22-29) 06/26/21 17:36 Anion Gap 14.7 (5-19) 06/26/21 17:36 BUN 34 mg/dL (8-23) H 06/26/21 17:36 Creatinine 1.5 mg/dL (0.7-1.2) H 06/26/21 17:36 GFR Calculation Not Reportable 06/26/21 17:36 Glucose 139 mg/dL (65-115) H 06/26/21 17:36 Calculated Osmolality 296 mOsm/kg (285-295) H 06/26/21 17:36 Lactate 1.2 mmol/L (0.5-2.2) 06/26/21 17:36 Calcium 8.6 mg/dL (8.5-10.5) 06/26/21 17:36 Total Bilirubin 0.6 mg/dL (0.15-1.2) 06/26/21 17:36 AST 18 U/L (0-40) 06/26/21 17:36 ALT 15 U/L (0-41) 06/26/21 17:36 Alkaline Phosphatase 213 IU/L (40-130) H 06/26/21 17:36 NT-Pro-B Natriuret Pep 1198 pg/mL (0-450) H 06/26/21 17:36 Total Protein 6.5 g/dL (6.6-8.7) L 06/26/21 17:36 Albumin 3.0 g/dL (3.5-5.2) L 06/26/21 17:36 Globulin 3.5 g/dL (1.3-4.6) 06/26/21 17:36 Imaging Data Other Imaging: Radiologist's impression: [address] [address] XRay Report Signed Patient: Doron Curtis Unit #: [id number] : 1940 Age/Sex: 80 / M ADM Date: 06/26/21 Loc: ER Room/Bed: Attending Dr: Ordering Provider/Ordering MD: Main Elaine DO Date of Service: 06/26/21 Procedure(s): XR chest 1V portable [id number] Accession Number(s): [id number] Report Number: [id number] PROCEDURE INFORMATION: Exam: XR Chest Exam date and time: 06/26/2021 5:46 PM Age: 80 years old Clinical indication: Cough TECHNIQUE: Imaging protocol: XR of the chest. Views: 1 view. COMPARISON: CR (CHEST, ) 06/06/2021 5:23 PM FINDINGS: Lungs: Right hilar to lower lobe atelectasis versus infiltrate. Pleural spaces: Unremarkable. No pleural effusion. No pneumothorax. Heart/Mediastinum: Unremarkable. No cardiomegaly. Bones/joints: Unremarkable. XR/XR chest 1V portable [id number] IMPRESSION: Right hilar to lower lobe atelectasis versus infiltrate. ? Dictated By: Tamir Alford MD Signed By: Tamir Alford MD Signed Date/Time: 06/26/211811 DD/ 45 Discharge Plan Discharge Patient Disposition: Home Clinical Impression: Dyspnea, Productive cough, Pneumonia, OTILIO (acute kidney injury) Condition: Stable Prescriptions: New doxycycline hyclate 100 mg tablet 100 mg PO BID 7 Days Qty: 14 0RF amoxicillin-pot clavulanate 875-125 mg tablet 1 tab PO BID 7 Days Qty: 14 0RF No Action albuterol sulfate [ProAir HFA] 90 mcg/actuation HFA aerosol inhaler 2 puff INHALATION Q6H PRN (Reason: Shortness Of Breath) 0RF fluticasone propion-salmeterol [Advair Diskus] 250-50 mcg/dose blister with device 1 inh INHALATION BID 0RF aspirin [Adult Aspirin Regimen] 81 mg tablet,delayed release (DR/EC) 81 mg PO DAILY 0RF Incruse Ellipta 62.5 mcg/actuation blister with device 1 inh INHALATION Q24H 0RF Atrovent HFA 17 mcg/actuation HFA aerosol inhaler 1 puff INHALATION QID PRN (Reason: Shortness Of Breath) 0RF methotrexate sodium 2.5 mg tablet See Rx Instructions PO .COMPLEX Qty: 35 4RF Rx Instructions: take 4 tabs in am and 3 tabs in pm on same day (17.5mg) once a week PO; folic acid 1 mg tablet 1 mg PO DAILY Qty: 90 3RF Humira(CF) Pen 40 mg/0.4 mL pen injector kit 40 mg SUBCUT Q14D Qty: 2 3RF polyethylene glycol 3350 [Miralax] 17 gram/dose Powder 17 g PO DAILY PRN (Reason: Constipation) 0RF fluticasone propionate 50 mcg/actuation [place],Suspension 1 spray INTRANASAL DAILY PRN (Reason: Nasal Congestion) 0RF Rx Instructions: administer into each nostril simvastatin 40 mg tablet 40 mg PO BEDTIME 0RF diclofenac sodium 1 % gel 2 g topical QID PRN (Reason: Pain) 0RF Rx Instructions: apply to affected area as needed cyanocobalamin (vitamin B-12) [Vitamin B-12] 1,000 mcg Tablet 1,000 mcg PO DAILY Qty: 30 0RF acetaminophen 325 mg Tablet 650 mg PO Q6H PRN (Reason: Mild/Mod Pain Or Temp >/= 101) Qty: 100 0RF ferrous sulfate 300 mg (60 mg iron)/5 mL Liquid 300 mg PO BIDWM Qty: 120 0RF hydrocodone-acetaminophen 5-325 mg Tablet 1 - 2 tab PO Q4H PRN (Reason: Breakthrough Pain) 30 Days 0RF sennosides-docusate sodium [Stool Softener-Laxative] 8.6-50 mg Tablet 1 tab PO BID Qty: 60 0RF Discharge Orders: Discharge ED (Routine); Ordered 06/26/21 Ordered By: Estela Clemens Referrals: Maria Del Carmen London MD [Primary Care Provider] - Discharge Diet: Advance as tolerated Discharge Activity: Increase activity as tolerated Patient Instructions: Pneumonia (ED) Activity Restrictions/Additional Instructions: Come back to the emergency room if your symptoms worsen, have any shortness of breath, fever/chills, dehydration, inability tolerate food or drinks, any difficulty breathing, or any new or concerning complaints. Please return the emergency room if your pulse ox reads less than 88%. Coding Level of Care Code ED Infant Nanny for Chg Fwd Exam Comprehensive
[2021-06-26] MEDS: sodium chloride 0.9% 500 ML IV ×2 (17:53→20:15)
[2021-06-26 18:14] LABS: Lactate (Lactic Acid level) 1.2 mmol/L (0.5-2.2)
[2021-06-26 18:23] LABS: Alanine Aminotransferase 15 U/L (0-41); Alkaline Phosphatase 213 IU/L (40-130); Anion Gap 14.7 (5-19); Aspartate Amino Transferase 18 U/L (0-40); Blood Urea Nitrogen 34 mg/dL (8-23); Calcium 8.6 mg/dL (8.5-10.5); Carbon Dioxide 22 mmol/L (22-29); Chloride 105 mmol/L (98-107); Globulin 3.5 g/dL (1.3-4.6); Glucose 139 mg/dL (65-115); NT Pro B Type Natriuretic Pept 1198 pg/mL (0-450); Osmolality Calculated 296 mOsm/kg (285-295); Potassium 3.7 mmol/L (3.5-5.1); Sodium 138 mmol/L (136-145); Total Bilirubin 0.6 mg/dL (0.15-1.2); Total Protein 6.5 g/dL (6.6-8.7)
[2021-06-26 19:48] LABS: Adenovirus Not Detected (NOT DETECT); Chlamydia Pneumoniae Not Detected (NOT DETECT); Coronavirus 229E,HKU1,NL63,OC4 Detected (NOT DETECT); Human Metapneumovirus Not Detected (NOT DETECT); Human Rhinovirus/Enterovirus Not Detected (NOT DETECT); Influenza A Not Detected (NOT DETECT); Influenza A H1 Not Detected (NOT DETECT); Influenza A H1-2009 Not Detected (NOT DETECT); Influenza A H3 Not Detected (NOT DETECT); Influenza B Not Detected (NOT DETECT); Mycoplasma Pneumoniae Not Detected (NOT DETECT); Parainfluenza Virus Type 1 Not Detected (NOT DETECT); Parainfluenza Virus Type 2 Not Detected (NOT DETECT); Parainfluenza Virus Type 3 Not Detected (NOT DETECT); Parainfluenza Virus Type 4 Not Detected (NOT DETECT); Respiratory Syncytial Virus A Not Detected (NOT DETECT); Respiratory Syncytial Virus B Not Detected (NOT DETECT); SARS-COV-2 Not Detected (NOT DETECT)
[2021-06-26] MEDS: amoxicillin-clav 875-125 mg Tablet 1 TAB PO (20:14)
[2021-06-26] MEDS: doxycycline 100 MG in sodium chloride 0.9% (plus) 100 ML IV (20:15)
[2021-06-26 22:00] VITALS: BP 118/86; PULSE 98; RESP 22; O2SAT 91
--- NOTE | 2021-06-27 06:34 | PC.NURSE ---
Meghan from lab called for positive blood culture. Bottle 1 of 4. Aerobic. Gram negative rods. Spoke with Dr Elaine about results. Dr Elaine stated to follow up with patient about how he is feeling. Will wait on final culture results.
--- NOTE | 2021-06-27 06:42 | PC.NURSE ---
Called to follow up about patient's status. Spoke with patient's daughter, she stated that she stayed with the patient overnight to observe him. Patients daughter stated around 2:30 this morning during his breathing treatment he was feeling better. Advised to return to ER if patient's condition worsened.
[2021-06-27 08:18] LABS: Acinetobacter baumannii Not Detected (NOT DETECT); Bacteroides fragilis Not Detected (NOT DETECT); CTX-M Not Detected (NOT DETECT); Citrobacter Not Detected (NOT DETECT); Cronobacter sakazakii Not Detected (NOT DETECT); Enterobacter cloacae complex Not Detected (NOT DETECT); Enterobacter non cloacae Not Detected (NOT DETECT); Fusobacterium necrophorum Not Detected (NOT DETECT); Fusobacterium nucleatum Not Detected (NOT DETECT); Haemophilus influenzae Not Detected (NOT DETECT); IMP Resistance Gene Not Detected (NOT DETECT); KPC Resistance Gene Not Detected (NOT DETECT); Klebsiella pneumoniae group Not Detected (NOT DETECT); Morganella morganii Not Detected (NOT DETECT); NDM Resistance Gene Not Detected (NOT DETECT); Neisseria meningitidis Not Detected (NOT DETECT); OXA Resistance Gene Not Detected (NOT DETECT); Pan Candida Not Detected (NOT DETECT); Pan Gram-Positive Not Detected (NOT DETECT); Proteus mirabilis Not Detected (NOT DETECT); Pseudomonas aeruginosa Not Detected (NOT DETECT); Salmonella Not Detected (NOT DETECT); Serratia Not Detected (NOT DETECT); Serratia marcescens Not Detected (NOT DETECT); Stenotrophomonas maltophilia Not Detected (NOT DETECT); VIM Resistance Gene Not Detected (NOT DETECT)
== END 2021-06-26 22:03 | disposition home or self-care (01) ==
PROVIDERS: Emergency Medicine; Emergency Provider Emergency Medicine; PCP Family Medicine
DX: J18.9 Pneumonia, unspecified organism (principal); N17.9 Acute kidney failure, unspecified; J44.0 Chronic obstructive pulmonary disease with (acute) lower respiratory infection; E11.22 Type 2 diabetes mellitus with diabetic chronic kidney disease; N18.9 Chronic kidney disease, unspecified; F17.210 Nicotine dependence, cigarettes, uncomplicated; I25.10 Atherosclerotic heart disease of native coronary artery without angina pectoris; I25.2 Old myocardial infarction; M05.79 Rheumatoid arthritis with rheumatoid factor of multiple sites without organ or systems involvement; Z79.82 Long term (current) use of aspirin; Z79.51 Long term (current) use of inhaled steroids; Z79.891 Long term (current) use of opiate analgesic; Z95.5 Presence of coronary angioplasty implant and graft
CPT/HCPCS: 71045; 80048; 80053; 83605; 83880; 85025; 87040; 87077; 87150; 87186; 87205; 87486; 87581; 87633; 96361; 96365; 99284; J3490; J7040

== ENCOUNTER 2021-07-23 13:16 | Outpatient (CLI) | payer MEDICARE, MEDICAID, SELFPAY ==
[2021-07-23 14:04] LABS: Basophils % 0.3 %; Eosinophils # 0.2 10^3/uL (0.0-0.8); Eosinophils % 2.9 %; Hemoglobin 10.6 g/dL (11.7-16.6); Lymphocytes # 1.8 10^3/uL (0.8-4.8); Lymphocytes % 24.7 %; Mean Corpuscular HGB Conc 32.1 g/dL (30.0-36.0); Mean Corpuscular Hemoglobin 36.2 pg (28.0-34.0); Mean Corpuscular Volume 112.6 fl (80-94); Mean Platelet Volume 10.6 fL (7.4-10.4); Monocytes # 0.5 10^3/uL (0.2-0.9); Monocytes % 6.2 %; Neutrophils # 4.74 10^3/uL (1.8-7.7); Neutrophils % 65.1 %; Nucleated Red Blood Cells % 0 %; Platelet Count 198 10^3/cmm (130-400); Red Blood Count 2.93 10^6/uL (4.1-5.3); Red Cell Distribution Width 16.3 % (12.1-15.1); White Blood Count 7.3 10^3/uL (4.0-10.0)
[2021-07-23 14:26] LABS: Alanine Aminotransferase 16 U/L (0-41); Albumin Level 3.3 g/dL (3.5-5.2); Alkaline Phosphatase 233 IU/L (40-130); Aspartate Amino Transferase 32 U/L (0-40); C Reactive Protein 14.9 mg/L (0.0-4.9); Globulin 3.4 g/dL (1.3-4.6); Total Bilirubin 0.2 mg/dL (0.15-1.2); Total Protein 6.7 g/dL (6.6-8.7)
[2021-07-23 14:39] LABS: Slide Review Slide Review Perform
== END 2021-07-23 13:17 | disposition home or self-care (01) ==
PROVIDERS: PCP Family Medicine; Visit Provider Internal Medicine Rheumatology
DX: M05.79 Rheumatoid arthritis with rheumatoid factor of multiple sites without organ or systems involvement (principal); N18.2 Chronic kidney disease, stage 2 (mild); Z79.899 Other long term (current) drug therapy
CPT/HCPCS: 36415; 80076; 82565; 85025; 86140

== ENCOUNTER → 2021-07-30 08:49 | Outpatient (BNVA) | payer MEDICARE, MEDICAID, SELFPAY | PROVIDERS: PCP Family Medicine; Visit Provider Internal Medicine | DX: I25.10 Atherosclerotic heart disease of native coronary artery without angina pectoris (principal); I35.0 Nonrheumatic aortic (valve) stenosis; E78.5 Hyperlipidemia, unspecified; F17.210 Nicotine dependence, cigarettes, uncomplicated; E11.22 Type 2 diabetes mellitus with diabetic chronic kidney disease; N18.2 Chronic kidney disease, stage 2 (mild); I25.5 Ischemic cardiomyopathy; J43.1 Panlobular emphysema | CPT/HCPCS: 99214 ==

== ENCOUNTER → 2021-08-10 13:49 | Outpatient (BNVA) | payer MEDICARE, MEDICAID, SELFPAY | PROVIDERS: PCP Family Medicine; Visit Provider Orthopaedic Surgery | DX: S72.142D Displaced intertrochanteric fracture of left femur, subsequent encounter for closed fracture with routine healing (principal); X58.XXXD Exposure to other specified factors, subsequent encounter | CPT/HCPCS: 73502; 99024 ==

== ENCOUNTER → 2021-08-25 15:07 | Outpatient (BNVA) | payer MEDICARE, MEDICAID, SELFPAY | PROVIDERS: PCP Family Medicine; Visit Provider Internal Medicine Rheumatology | DX: M05.79 Rheumatoid arthritis with rheumatoid factor of multiple sites without organ or systems involvement (principal); Z79.899 Other long term (current) drug therapy; J44.9 Chronic obstructive pulmonary disease, unspecified; Z90.01 Acquired absence of eye; Z71.89 Other specified counseling | CPT/HCPCS: 99214 ==

== ENCOUNTER → 2021-09-07 08:02 | Outpatient (BNVA) | payer MEDICARE, MEDICAID, SELFPAY | PROVIDERS: PCP Family Medicine; Visit Provider Orthopaedic Surgery | DX: S72.142D Displaced intertrochanteric fracture of left femur, subsequent encounter for closed fracture with routine healing (principal); X58.XXXD Exposure to other specified factors, subsequent encounter | CPT/HCPCS: 73502; 99024 ==

== ENCOUNTER → 2021-10-04 10:21 | Outpatient (BNVA) | payer MEDICARE, MEDICAID, SELFPAY | PROVIDERS: PCP Family Medicine; Visit Provider Registered Nurse School | DX: N39.0 Urinary tract infection, site not specified (principal) | CPT/HCPCS: 87077; 87086; 87184 ==

== ENCOUNTER → 2021-11-23 09:44 | Outpatient (BNVA) | payer MEDICARE, MEDICAID, SELFPAY | PROVIDERS: PCP Family Medicine; Visit Provider Orthopaedic Surgery | DX: S72.142S Displaced intertrochanteric fracture of left femur, sequela (principal); X58.XXXS Exposure to other specified factors, sequela | CPT/HCPCS: 73502; 99213 ==

== ENCOUNTER 2021-12-06 15:37 | Outpatient (CLI) | payer MEDICARE, MEDICAID, SELFPAY ==
[2021-12-06 16:13] LABS: Basophils % 0.6 %; Eosinophils # 0.3 10^3/uL (0.0-0.8); Eosinophils % 4.9 %; Hematocrit 31.4 % (42.0-52.0); Hemoglobin 10.2 g/dL (11.7-16.6); Lymphocytes # 1.4 10^3/uL (0.8-4.8); Lymphocytes % 19.5 %; Mean Corpuscular HGB Conc 32.5 g/dL (30.0-36.0); Mean Corpuscular Hemoglobin 38.9 pg (28.0-34.0); Mean Corpuscular Volume 119.8 fl (80-94); Mean Platelet Volume 10.7 fL (7.4-10.4); Monocytes # 0.3 10^3/uL (0.2-0.9); Monocytes % 4.3 %; Neutrophils # 4.86 10^3/uL (1.8-7.7); Neutrophils % 70.3 %; Nucleated Red Blood Cells % 0 %; Platelet Count 132 10^3/cmm (130-400); Red Blood Count 2.62 10^6/uL (4.1-5.3); Red Cell Distribution Width 16.9 % (12.1-15.1); White Blood Count 6.9 10^3/uL (4.0-10.0)
[2021-12-06 17:01] LABS: Alanine Aminotransferase 17 U/L (0-41); Albumin Level 3.7 g/dL (3.5-5.2); Alkaline Phosphatase 153 U/L (40-130); Aspartate Amino Transferase 26 U/L (0-40); C Reactive Protein 7.4 mg/L (0.0-4.9); Globulin 3.3 g/dL (1.3-4.6); Total Bilirubin 0.4 mg/dL (0.15-1.2)
== END 2021-12-06 15:38 | disposition home or self-care (01) ==
LOC: LAB 15:42
PROVIDERS: PCP Family Medicine; Visit Provider Internal Medicine Rheumatology
DX: M05.79 Rheumatoid arthritis with rheumatoid factor of multiple sites without organ or systems involvement (principal); Z79.899 Other long term (current) drug therapy
CPT/HCPCS: 36415; 80076; 82565; 85025; 86140

== ENCOUNTER → 2022-02-09 13:02 | Outpatient (BNVA) | payer MEDICARE, MEDICAID, SELFPAY | PROVIDERS: PCP Family Medicine; Visit Provider Internal Medicine | DX: I25.10 Atherosclerotic heart disease of native coronary artery without angina pectoris (principal); E11.22 Type 2 diabetes mellitus with diabetic chronic kidney disease; N18.2 Chronic kidney disease, stage 2 (mild); I25.2 Old myocardial infarction; F17.210 Nicotine dependence, cigarettes, uncomplicated; E78.5 Hyperlipidemia, unspecified; I25.5 Ischemic cardiomyopathy; J43.1 Panlobular emphysema; I35.0 Nonrheumatic aortic (valve) stenosis | CPT/HCPCS: 99213 ==

== ENCOUNTER → 2022-04-14 09:29 | Outpatient (BNVA) | payer MEDICARE, MEDICAID, SELFPAY | PROVIDERS: PCP Family Medicine; Visit Provider Internal Medicine Rheumatology | DX: M05.79 Rheumatoid arthritis with rheumatoid factor of multiple sites without organ or systems involvement (principal); Z79.899 Other long term (current) drug therapy; Z71.89 Other specified counseling; J43.1 Panlobular emphysema; F17.210 Nicotine dependence, cigarettes, uncomplicated; Z90.01 Acquired absence of eye | CPT/HCPCS: 99214 ==

== ENCOUNTER → 2022-05-20 11:00 | Outpatient (BNVA) | payer MEDICARE, MEDICAID, SELFPAY | PROVIDERS: PCP Family Medicine; Visit Provider Dermatology | DX: Z85.828 Personal history of other malignant neoplasm of skin (principal); L57.0 Actinic keratosis | CPT/HCPCS: 88305 ==

== ENCOUNTER 2022-09-21 14:07 | Outpatient (CLI) | payer MEDICARE, MEDICAID, SELFPAY ==
--- NOTE | 2022-09-21 15:17 | USCV_ITS ---
Doron Curtis Age: 82 Gender: M : 1940 Exam Date: 09/21/2022 15:26 Ordering Phys: Carole Koehler Technologist: [place] [facility] [place]: sob BP: 88 / 60 HR: 87 Rhythm: Sinus Technical Quality: Poor secondary to COPD MEASUREMENTS (Male / Female) Normal Values 2D ECHO LV Diastolic Diameter PLAX 3.4 cm 4.2 - 5.9 / 3.9 - 5.3 cm LV Systolic Diameter PLAX 2.3 cm LV Chamber Size 5.3 cm IVS Diastolic Thickness 1.1 cm 0.6 - 1.0 / 0.6 - 0.9 cm IVS Systolic Thickness 1.1 cm LVPW Diastolic Thickness 1.1 cm 0.6 - 1.0 / 0.6 - 0.9 cm LVPW Systolic Thickness 1.9 cm RV Chamber Size 4.5 cm LVOT Diameter 2.1 cm LV Ejection Fraction 2D Teich 55.6 % LV Ejection Fraction MOD 2C 56.5 % LV Ejection Fraction 2C AL 57.9 % LA Diameter 3.6 cm LA Width 3.0 cm LA Height 4.2 cm RA Width 2.8 cm RA Height 3.1 cm Aorta at Sinotubular Diameter 2.6 cm M-MODE Aortic Annulus Diameter 2.7 cm LA Ao Ratio MM 1.7 MV E Point Septal Separation 0.8 cm DOPPLER AV Peak Velocity 208.0 cm/s LVOT Peak Velocity 86.0 cm/s AV Area Cont Eq vti 2.1 cm squared AV Area Cont Eq pk 1.4 cm squared MV Peak Velocity 129.0 cm/s MV Area PHT 3.0 cm squared Mitral E to A Ratio 0.6 MV E' Velocity 34.5 cm/s Mitral E to MV E' Ratio 6.4 Mitral E to LV E' Lateral Ratio 5.9 Mitral E to LV E' Septal Ratio 7.0 TV Peak E Velocity 68.0 cm/s Right Atrial Pressure 8.0 mmHg PV Peak Velocity 104.0 cm/s FINDINGS Left Ventricle The examination is poor quality due to underlying lung disease. Normal left ventricular size and function. Ejection fraction 60%. Grade 1 diastolic dysfunction. No obvious regional wall motion disturbances. Right Ventricle Normal right ventricular size and systolic function. Right Atrium The right atrium is normal in size. Left Atrium The left atrium is normal in size. Mitral Valve Structurally normal mitral valve. Trace mitral valve regurgitation. Aortic Valve Structurally normal trileaflet aortic valve. Mild aortic valve calcification. Mild aortic valve stenosis, mean gradient 9.7 mmHg, MICHAELLE 2.1 cm squared. Interrogation of the valve is difficult due to the difficult imaging. Tricuspid Valve Structurally normal tricuspid valve without significant stenosis or regurgitation. Pulmonary artery systolic pressure is normal. Pulmonic Valve Pulmonic valve not well visualized. Pericardium Normal pericardium without effusion. Aorta Normal ascending aorta dimension. IVC The inferior vena cava appears normal. CONCLUSIONS The examination is poor quality due to underlying lung disease. Normal left ventricular size and function. Ejection fraction 60%. Grade 1 diastolic dysfunction. No obvious regional wall motion disturbances. Structurally normal mitral valve. Trace mitral valve regurgitation. Structurally normal trileaflet aortic valve. Mild aortic valve calcification. Mild aortic valve stenosis, mean gradient 9.7 mmHg, MICHAELLE 2.1 cm squared. Interrogation of the valve is difficult due to the difficult imaging. There has been no change from the previous study dictated 09/21/2017 Dr. Parth Bond MD (Electronically Signed) Final Date: 22 September 2022 08:17 S
== END 2022-09-21 14:08 | disposition home or self-care (01) ==
PROVIDERS: PCP Family Medicine; Visit Provider Registered Nurse
DX: R06.09 Other forms of dyspnea (principal); I51.89 Other ill-defined heart diseases; I70.0 Atherosclerosis of aorta; I35.0 Nonrheumatic aortic (valve) stenosis; J44.9 Chronic obstructive pulmonary disease, unspecified
CPT/HCPCS: 93306

== ENCOUNTER 2022-10-13 11:15 | Day surgery (SDC) | payer MEDICARE, MEDICAID, SELFPAY ==
[2022-10-11 12:28] VITALS: BMI 19.6
--- NOTE | 2022-10-13 11:27 | US_ITS ---
WS: [id number] ULTRASOUND-GUIDED PARACENTESIS CLINICAL INFORMATION: ascites COMPARISON: None. Procedure Informed consent: The risks, benefits, and alternatives of the procedure were discussed with the jacinta ent. Verbal and written consent was obtained. Timeout: A timeout was performed to confirm the correct patient, procedure, and site. Preparation: A suitable skin site was identified. The patient was prepped and draped in usual sterile fashion. Lidocaine 1% was used for local anesthesia. Catheter: 4 Egyptian One-step Yueh catheter. Side: RIGHT Lower quadrant. Fluid Volume: 4300 ml Color: Clear yellow DISPOSITION: Discarded safely. Complications: None. Patient disposition: Discharged from the department in stable condition. US/US paracentesis abd w [id number] IMPRESSION: Uncomplicated ultrasound-guided paracentesis. Removal of 4300 cc
[2022-10-13 11:36] VITALS: BP 132/83; PULSE 100; RESP 20; TEMP 36.1; O2SAT 97
== END 2022-10-13 12:33 | disposition home or self-care (01) ==
LOC: GILAB 11:18
PROVIDERS: Radiology Neuroradiology; PCP Family Medicine; Visit Provider Registered Nurse
PROC: (CPT 49082; principal; 2022-10-13 12:00)
DX: R18.8 Other ascites (principal); K74.60 Unspecified cirrhosis of liver
CPT/HCPCS: 49083

== ENCOUNTER → 2022-11-09 13:48 | Outpatient (BNVA) | payer MEDICARE, MEDICAID, SELFPAY | PROVIDERS: PCP Family Medicine; Visit Provider Internal Medicine | DX: N18.2 Chronic kidney disease, stage 2 (mild) (principal); E11.22 Type 2 diabetes mellitus with diabetic chronic kidney disease; I35.0 Nonrheumatic aortic (valve) stenosis; E78.5 Hyperlipidemia, unspecified; Z72.0 Tobacco use; I25.5 Ischemic cardiomyopathy; I25.10 Atherosclerotic heart disease of native coronary artery without angina pectoris; J43.1 Panlobular emphysema | CPT/HCPCS: 99214 ==

== ENCOUNTER → 2022-11-11 11:11 | Outpatient (BNVA) | payer MEDICARE, MEDICAID, SELFPAY | PROVIDERS: PCP Family Medicine; Visit Provider Nurse Practitioner Family | DX: L57.0 Actinic keratosis (principal); D18.01 Hemangioma of skin and subcutaneous tissue; L81.4 Other melanin hyperpigmentation; D22.5 Melanocytic nevi of trunk; L85.3 Xerosis cutis; L57.8 Other skin changes due to chronic exposure to nonionizing radiation; Z85.828 Personal history of other malignant neoplasm of skin | CPT/HCPCS: 17000; 17003; 99213 ==

== ENCOUNTER 2022-12-17 12:24 | Emergency (ER) | payer MEDICARE, MEDICAID, SELFPAY ==
[2022-12-17] VITALS (9 sets, daily range): BP systolic 86–121; BP diastolic 62–78; PULSE 96–112; RESP 18–30; TEMP 36.6; O2SAT 93–97
--- NOTE | 2022-12-17 12:34 | ECG_ITS ---
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 Measurements Intervals [place] Rate: 109 P: 50 GA: 146 QRS: 15 QRSD: 85 T: 70 QT: 313 QTc: 423 Interpretive Statements SINUS TACHYCARDIA LOW QRS VOLTAGE [QRS DEFLECTION < 0.5/1.0 mV IN LIMB/CHEST LEADS] POSSIBLE ANTERIOR MYOCARDIAL INFARCTION , PROBABLY OLD [30 ms Q WAVE IN V3/V4, OR R < 0.2 mV IN V4] Compared to ECG 06/06/2021 17:57:13 Sinus rhythm no longer present Myocardial infarct finding still present Electronically Signed On 12-18-2022 22:54:33 CDT by Erik Barnes M.D. [email or web address]
--- NOTE | 2022-12-17 12:42 | XRR_ITS ---
PROCEDURE INFORMATION: Exam: XR Chest Exam date and time: 12/17/2022 1:02 PM Age: 82 years old Clinical indication: Dyspnea TECHNIQUE: Imaging protocol: Radiologic exam of the chest. Views: 1 view. COMPARISON: CR XR chest 1V portable [id number] 06/26/2021 5:46 PM FINDINGS: Lungs: Unremarkable. No consolidation. Pleural spaces: Unremarkable. No pleural effusion. No pneumothorax. Heart/Mediastinum: Unremarkable. No cardiomegaly. Bones/joints: Unremarkable. XR/XR chest 1V portable [id number] IMPRESSION: No acute findings.
--- NOTE | 2022-12-17 12:54 | ED_ITS ---
HPI - SOB/Dyspnea General: Chief Complaint: Shortness of Breath/Dyspnea Stated Complaint: DISTENDED ABD Time Seen by Provider: 12/17/22 12:27 History of Present Illness: HPI Narrative: Patient presents to the ER by EMS with complaints of shortness of breath. Patient was just recently discharged from [facility] approximately a week ago for similar episodes. Patient had paracentesis at that time where they removed 3 to 4 L per family. Since then patient has put on approximately 28 pounds. Patient is having worsening shortness of breath with abdominal edema. Patient is currently on spironolactone. Patient does have a stent in his right ureter and has a known right kidney mass. Patient does have appointment set up on Monday recurring weekly for paracentesis but his family did not think he can make it until Monday. Patient is breathing shallow and has tachypnea. Review of Systems General: Reports: 10 or more systems reviewed and unremarkable except in HPI and below PFSH ED PFSH: Medical History CAD (coronary artery disease) Chronic kidney disease (CKD) COPD (chronic obstructive pulmonary disease) Diabetes mellitus Dyslipidemia Gout, unspecified High risk medication use High risk medication use History of anterior wall myocardial infarction History of malignant melanoma Ischemic cardiomyopathy Mild aortic stenosis Presence of stent in LAD coronary artery Rheumatoid arthritis with rheumatoid factor of multiple sites without organ or systems involvement Tobacco abuse Surgical History H/O bilateral cataract extraction History of eye evisceration History of hip surgery Stented coronary artery Family History Denies family history of Rheumatoid arthritis Lupus Social History Smoking and tobacco status: current every day smoker cigarettes Packs smoked per day: 1.5 Years cigarettes smoked: 30 Alcohol intake: never Substance/Drug Use: never Marital status: Physical Exam Const: COMMON NORMALS: no acute distress, average body habitus, patient orient ed x3, no limitations, healthy appearing, alert and well nourished HENMT: COMMON NORMALS: normocephalic, atraumatic, hearing grossly normal bilaterally, external ears normal, Normal external nose present and moist oral mucous membranes HEAD & SCALP: normocephalic and atraumatic NOSE: Normal external nose present EXTERNAL EAR: Yes external ears normal Eye: OTHER: Right eye has been removed. Neck/C-Spine: COMMON NORMALS: full ROM, no lymphadenopathy, supple, no meningeal signs, no JVD and Thyroid normal THYROID: Thyroid normal Chest: COMMONS NORMALS: normal inspection of the chest and normal palpation of entire chest wall Resp: OTHER: Decreased breath sounds bilaterally, tachypnea Cardio: COMMON NORMALS: no JVD, regular rate, regular rhythm, S1 normal heart sound present, S2 normal heart sound present, No gallops present (Cardio), No clicks present (Cardio), No murmurs present (Cardio) and No rub (Cardio) RATE: regular rate RHYTHM: regular rhythm HEART SOUNDS: S1 normal heart sound present and S2 normal heart sound present GI: COMMON NORMALS: Soft to palpation, non-tender, No hepatosplenomegaly present and no masses; negative for Normal to inspection, nondistended, normoactive bowel sounds present (Mild distention throughout.) PALPATION: Yes Soft to palpation and Yes No hepatosplenomegaly present : COMMON NORMALS: Yes no CVA tenderness BLADDER/KIDNEY EXAM: Yes no CVA tenderness Back/Pelvis: COMMON NORMALS: no CVA tenderness Neuro: COMMON NORMALS: patient oriented x3 SENSORIUM/ORIENTATION: Yes alert MENINGEAL SIGNS: Yes no meningeal signs Course Vital Signs: Vital signs: Vital Signs Temperature 97.9 F 12/17/22 12:29 Pulse Rate 96 12/17/22 18:38 Respiratory Rate 18 12/17/22 19:17 Blood Pressure 94/66 12/17/22 18:30 Pulse Oximetry 96 12/17/22 18:38 Oxygen Delivery Me thod Nasal Cannula 12/17/22 19:17 Oxygen Flow Rate 2 12/17/22 19:17 MDM - SOB/Dyspnea Medical Decision Making Patient presents to the ER with complaints of fluid overload and shallow tachypneic breathing. Patient was just discharged from [facility] within the last several days for the same thing. Patient has a paracentesis coming up within the next couple days but does not think he can make it. Patient's lab work showed a white count 23,000 and is down from approximately 30,000 and also showed a BUN/creatinine of 61 and 4.1 which is up from approximately 5.[address] [facility] transfer team. His CT scan did show a moderate amount of ascites and mild amount of anasarca. Is felt the patient would benefit from paracentesis at this time rather than wait. Dr. Lanza was consulted who does not do paracentesis, Dr. Buckley was consulted she does not do paracentesis, [facility] was called Dr. Naqvi the [employer] for the internal medicine. Who accepted for Dr. New. Patient will be transferred there for paracentesis and further evaluation and treatment. Differential Diagnosis Unlikely acute exacerbation of chronic obstructive airways disease, congestive heart failure, community acquired pneumonia, asthma with exacerbation or pulmonary embolism Medical Records I reviewed the patient's medical records. Lab Data I reviewed the patient's lab results. 12/17/22 14:28 12/17/22 14:28 Labs/Radiology: Radiology Impressions Chest X-Ray 12/17/22 12:42 IMPRESSION: No acute findings. Abdomen/Pelvis CT 12/17/22 13:29 IMPRESSION: 1. Right internal ureteral stent in place within the right renal collecting system. Diffuse abnormality of the right kidney as discussed above the could be further assessed on renal ultrasound exam and MRI exam of the right kidney. 2. Moderate amount of ascites throughout the abdomen and pelvis and mild anasarca within the soft tissues possibly secondary to systemic factors including volume overload. 3. Colonic diverticulosis. No evidence of acute diverticulitis. 4. Mild splenomegaly. 5. Limited assessment of the gallbladder which is markedly contracted. 6. Diffuse atherosclerotic changes of the abdominal aorta, iliac vessels and mesenteric branches. 7. Severe compression fractures upper lumbar spine. 8. Few small pulmonary nodules at the lung bases measuring up to 6 mm better assessed on dedicated CT exam of the chest. Laboratory Results WBC 23.11 10^3/uL (3.29-11.43) H 12/17/22 14:28 RBC 2.28 10^6/uL (3.85-5.65) L 12/17/22 14:28 Hgb 7.40 g/dL (11.27-16.99) L 12/17/22 14:28 Hct 24.1 % (37-53) L 12/17/22 14: MCV 105.7 fl (82-101) H 12/17/22 14:28 MCH 32.5 pg (27-33) 12/17/22 14: MCHC 30.7 g/dL (30-55) 12/17/22 14: RDW 25.7 % (12.1-15.1) H 12/17/22 14: Plt Count 98 10^3/cmm (157-399) L 12/17/22 14: MPV 10.4 fL (7.4-10.4) 12/17/22 14: Neut % (Auto) 90.1 % 12/17/22 14:28 Lymph % (Auto) 4.9 % 12/17/22 14: [place] % (Auto) 4.0 % 12/17/22 14: Eos % (Auto) 0.2 % 12/17/22 14: Baso % (Auto) 0.2 % 12/17/22 14: Neut # (Auto) 20.80 10^3/uL (1.8-7.7) H 12/17/22 14: Lymph # (Auto) 1.1 10^3/uL (0.8-4.8) 12/17/22 14:28 [place] # (Auto) 0.9 10^3/uL (0.2-0.9) 12/17/22 14: Eos # (Auto) 0.1 10^3/uL (0.0-0.8) 12/17/22 14: Baso # (Auto) 0.0 10^3/uL (0.0-0.1) 12/17/22 14: Nucleated RBC % (auto) 0 % 12/17/22 14: Nucleated RBCs # 0.0 /100WBC 12/17/22 14:28 Sodium 137 mmol/L (136-145) 12/17/22 14:28 Potassium 4.0 mmol/L (3.5-5.1) 12/17/22 14: Chloride 106 mmol/L (98-107) 12/17/22 14: Carbon Dioxide 19 mmol/L (22-29) L 12/17/22 14:28 Anion Gap 16.0 (5-19) 12/17/22 14:28 BUN 61 mg/dL (8-23) H 12/17/22 14:28 Creatinine 4.1 mg/dL (0.7-1.2) H 12/17/22 14:28 GFR Calculation Not Reportable 12/17/22 14: Glucose 133 mg/dL (65-115) H 12/17/22 14: Calculated Osmolality 303 mOsm/kg (285-295) H 12/17/22 14:28 Lactic Acid 2.8 mmol/L (0.5-2.2) H 12/17/22 14: Calcium 7.8 mg/dL (8.5-10.5) L 12/17/22 14: Phosphorus 4.5 mg/dL (2.5-4.5) 12/17/22 14: Magnesium 2.3 mg/dL (1.7-2.3) 12/17/22 14: Total Bilirubin 0.3 mg/dL (0.15-1.2) 12/17/22 14:28 AST 30 U/L (0-40) 12/17/22 14: ALT 18 U/L (0-41) 12/17/22 14: Alkaline Phosphatase 274 U/L (40-130) H 12/17/22 14:28 NT-Pro-B Natriuret Pep 4387 pg/mL (0-450) H 12/17/22 14:28 Total Protein 5.9 g/dL (6.6-8.7) L 12/17/22 14: Albumin 1.6 g/dL (3.5-5.2) L 12/17/22 14: Globulin 4.3 g/dL (1.3-4.6) 12/17/22 14:28 Procalcitonin 4.49 ng/mL (0-0.5) H 12/17/22 14:28 Urine Color Yellow (Yellow) 12/17/22 12:49 Urine Appearance Cloudy (CLEAR) A 12/17/22 12:49 Urine pH 5 (5-7) 12/17/22 12:49 Ur Specific [place] 1.020 (1.005-1.030) 12/17/22 12:49 Urine Protein 3+ (Negative) H 12/17/22 12:49 Urine Glucose (UA) Trace (Normal) H 12/17/22 12:49 Urine Ketones 1+ (Negative) H 12/17/22 12:49 Urine Blood 3+ (Negative) H 12/17/22 12:49 Urine Nitrate Negative (Negative) 12/17/22 12:49 Urine Bilirubin Neg (Negative) 12/17/22 12:49 Urine Urobilinogen Norm mg/dL (Negative) 12/17/22 12:49 Ur Leukocyte Esterase 1+ (Negative) H 12/17/22 12:49 Urine RBC Too numerous to cnt /hpf (0-2) H 12/17/22 12:49 Urine WBC 0-4 /hpf (0-5) H 12/17/22 12:49 Ur Squamous Epith Cells 0-4 /hpf (0-5) H 12/17/22 12:49 Amorphous Sediment Not Reportable 12/17/22 12:49 Urine Bacteria Trace /hpf (NONE) 12/17/22 12:49 Urine Yeast 1+ /hpf H 12/17/22 12:49 All radiology interpretation(s) finalized by discharge EKG Data EKG 1: I personally reviewed and interpreted this EKG as follows: EKG Interpretation Date: 12/17/22 EKG interpretation time: 12:34 Prior EKG tracings: not available for review Interpretation: EKG shows ventricular rate 109 bpm, CA interval 146, QRS duration 85, QTc of 377, sinus tachycardia, Q waves in V3 and V4 Discharge Plan Discharge Patient Disposition: Xfer Short-Term Hosp Clinical Impression: Compromised respiratory function Abdominal ascites Qualifiers: Ascites type: other type Qualified Code(s): R18.8 - Other ascites Condition: Stable Referrals: Maria Del Carmen London MD [Primary Care Provider] - Coding Level of Care Code ED Information Security Specialist for Chg Lisa
--- NOTE | 2022-12-17 13:14 | PC.PHAR ---
PTS FAMILY VERIFIED PTS MEDICATIONS-STATES THE PT S HUMIRA INJECTION IS ON HOLD STATES NOT HAD SINCE SEPTEMBER 2022-PTS FAMILY STATES THE PTS KCL 10MEQ DAILY FILLED 11/17/22 90D/S WAS DCED -PTS FAMILY STATEST LASIX 20MG EOD PEN FILLED 10/10/22 60D/S WAS DCED-
--- NOTE | 2022-12-17 13:29 | CTR_ITS ---
PROCEDURE INFORMATION: Exam: CT Abdomen And Pelvis Without Contrast Exam date and time: 12/17/2022 4:06 PM Age: 82 years old Clinical indication: Abdominal pain; Prior surgery; Surgery date: <1 month; Surgery type: Stent in RT kidney; Additional info: Abd distension, edema, anasarca TECHNIQUE: Imaging protocol: Computed tomography of the abdomen and pelvis without contrast. Radiation optimization: All CT scans at this facility use at least one of these dose optimization techniques: automated exposure control; mA and/or kV adjustment per patient size (includes targeted exams where dose is matched to clinical indication); or iterative reconstruction. REPORTING DATA: Count of CT and Cardiac NM exams in prior 12 months: This patient has received 0 known CTs and 0 known cardiac nuclear medicine studies in the 12 months prior to the current study. COMPARISON: CR XR hip LT 2-3V wo/w pel* [id number] 11/23/2021 9:44 AM RADIATION DOSE METRICS: Total DLP (mGy-cm): 486.64 FINDINGS: Lungs: COPD with minor atelectatic changes at the lung bases. Few small circumscribed pulmonary nodules measuring up to 6 mm, nonspecific. Liver: Normal. No mass. Gallbladder and bile ducts: Gallbladder is poorly visualized and appears markedly contracted limiting its assessment. Bile ducts not dilated. The Pancreas: Unremarkable. Main pancreatic duct is not significantly dilated. Spleen: Normal. No splenomegaly. Adrenal glands: Normal. No mass. Kidneys and ureters: There is an internal ureteral stent within the right renal collecting system. Right kidney is diffusely abnormal with loss of normal renal architecture that may be due to diffuse swelling of the kidney or unilateral renal medical disease. No significant hydronephrosis. Left kidney is unremarkable. Stomach and bowel: The multiple diverticuli distal large bowel. No evidence of acute diverticulitis. Appendix: No evidence of acute appendicitis. Intraperitoneal space: Moderate amount of ascites throughout the abdomen and pelvis. Vasculature: Diffuse atherosclerotic changes of the abdominal aorta, the iliac vessels and mesenteric branches. 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 Lymph nodes: Unremarkable. No enlarged lymph nodes. Urinary bladder: Palmer catheter balloon in the urinary bladder difficult to further assess. Reproductive: Prostate gland is mildly enlarged. Bones/joints: Severe compression fractures involving L1 and L3 vertebral bodies that appear longstanding. Degenerative changes with mild compression fracture of L2. Degenerative spondylolisthesis L4-L5 resulting in severe stenosis of the central canal. Cephalomedullary nail left hip joint partially visualized. Soft tissues: Mild anasarca within the soft tissues. CT/CT abdomen pelvis wo con [id number] IMPRESSION: 1. Right internal ureteral stent in place within the right renal collecting system. Diffuse abnormality of the right kidney as discussed above the could be further assessed on renal ultrasound exam and MRI exam of the right kidney. 2. Moderate amount of ascites throughout the abdomen and pelvis and mild anasarca within the soft tissues possibly secondary to systemic factors including volume overload. 3. Colonic diverticulosis. No evidence of acute diverticulitis. 4. Mild splenomegaly. 5. Limited assessment of the gallbladder which is markedly contracted. 6. Diffuse atherosclerotic changes of the abdominal aorta, iliac vessels and mesenteric branches. 7. Severe compression fractures upper lumbar spine. 8. Few small pulmonary nodules at the lung bases measuring up to 6 mm better assessed on dedicated CT exam of the chest.
[2022-12-17 13:40] LABS: Add Urine Microscopic? YES; Bilirubin Urine Neg (Negative); Blood Urine 3+ (Negative); Glucose Urine UA Trace (Normal); Ketones Urine 1+ (Negative); Leukocyte Esterase Urine 1+ (Negative); Nitrate Urine Negative (Negative); Protein Urine 3+ (Negative); Urine Appearance Cloudy (CLEAR); Urine Color Yellow (Yellow); Urobilinogen Urine Norm (Negative); pH Urine 5 (5-7)
[2022-12-17 13:41] LABS: Add Urine Culture? Yes; Bacteria Urine TRACE /hpf; RBC Urine TOO NUMEROUS TO CNT /hpf (0-2); Squamous Epithelial Cell Urine 0-4 /hpf (0-5); WBC Urine 0-4 /hpf (0-5)
[2022-12-17 14:44] LABS: Basophils % 0.2 %; Eosinophils # 0.1 10^3/uL (0.0-0.8); Eosinophils % 0.2 %; Hematocrit 24.1 % (37-53); Lymphocytes # 1.1 10^3/uL (0.8-4.8); Lymphocytes % 4.9 %; Mean Corpuscular HGB Conc 30.7 g/dL (30-55); Mean Corpuscular Hemoglobin 32.5 pg (27-33); Mean Corpuscular Volume 105.7 fl (82-101); Mean Platelet Volume 10.4 fL (7.4-10.4); Monocytes # 0.9 10^3/uL (0.2-0.9); Neutrophils % 90.1 %; Nucleated Red Blood Cells % 0 %; Platelet Count 98 10^3/cmm (157-399); Red Blood Count 2.28 10^6/uL (3.85-5.65); Red Cell Distribution Width 25.7 % (12.1-15.1); White Blood Count 23.11 10^3/uL (3.29-11.43)
[2022-12-17 15:04] LABS: Alanine Aminotransferase 18 U/L (0-41); Albumin Level 1.6 g/dL (3.5-5.2); Alkaline Phosphatase 274 U/L (40-130); Aspartate Amino Transferase 30 U/L (0-40); Blood Urea Nitrogen 61 mg/dL (8-23); Calcium 7.8 mg/dL (8.5-10.5); Carbon Dioxide 19 mmol/L (22-29); Chloride 106 mmol/L (98-107); Globulin 4.3 g/dL (1.3-4.6); Glucose 133 mg/dL (65-115); Magnesium 2.3 mg/dL (1.7-2.3); NT Pro B Type Natriuretic Pept 4387 pg/mL (0-450); Osmolality Calculated 303 mOsm/kg (285-295); Phosphorus 4.5 mg/dL (2.5-4.5); Sodium 137 mmol/L (136-145); Total Bilirubin 0.3 mg/dL (0.15-1.2); Total Protein 5.9 g/dL (6.6-8.7)
[2022-12-17 15:34] LABS: Lactic Sepsis W/Reflex 2.8 mmol/L (0.5-2.2)
[2022-12-17 15:42] LABS: Procalcitonin 4.49 ng/mL (0-0.5)
[2022-12-17] MEDS: ondansetron 2 mg/ML SDV 2 mL 4 MG IVP (16:48)
[2022-12-17 17:07] LABS: Reflex Lactate Order REFLEX LACTIC ORDERD
[2022-12-17] MEDS: ipratropium-albuterol 3 mL Neb INHALATION (18:40)
--- NOTE | 2022-12-17 18:54 | PC.NURSE ---
Report called to Richelle Chinchilla at [phone]
[2022-12-17] MEDS: HYDROcodone-acetaminophen 5-325 mg Tablet 1 TAB PO (19:14)
== END 2022-12-17 20:18 | disposition short-term general hospital (02) ==
PROVIDERS: Emergency Provider Emergency Medicine; PCP Family Medicine
DX: J98.8 Other specified respiratory disorders (principal); R18.8 Other ascites; K57.30 Diverticulosis of large intestine without perforation or abscess without bleeding; F17.210 Nicotine dependence, cigarettes, uncomplicated; I25.10 Atherosclerotic heart disease of native coronary artery without angina pectoris; E11.22 Type 2 diabetes mellitus with diabetic chronic kidney disease; N18.9 Chronic kidney disease, unspecified; J44.9 Chronic obstructive pulmonary disease, unspecified; E78.5 Hyperlipidemia, unspecified; I25.2 Old myocardial infarction
CPT/HCPCS: 36415; 71045; 74176; 80053; 81001; 83605; 83735; 83880; 84100; 84145; 85025; 87040; 87086; 87106; 93005; 94640; 96374; 99285; J2405

== ENCOUNTER 2022-12-19 09:35 | Day surgery (SDC) | payer MEDICARE, MEDICAID, SELFPAY ==
[2022-12-19 09:52] VITALS: BMI 19.1
--- NOTE | 2022-12-19 09:55 | US_ITS ---
WS: [id number] ULTRASOUND-GUIDED PARACENTESIS CLINICAL INFORMATION: hepatic cirrhosis COMPARISON: None. Procedure Informed consent: The risks, benefits, and alternatives of the procedure were discussed with the jacinta ent. Verbal and written consent was obtained. Timeout: A timeout was performed to confirm the correct patient, procedure, and site. Preparation: A suitable skin site was identified. The patient was prepped and draped in usual sterile fashion. Lidocaine 1% was used for local anesthesia. Catheter: 4 Danish One-step Yueh catheter. Side: LEFT lower quadrant. Fluid Volume: 3200 ml Color: Clear yellow DISPOSITION: Discarded safely. Complications: None. Patient disposition: Discharged from the department in stable condition. IMPRESSION: Uncomplicated ultrasound-guided paracentesis. Removal of 3200 cc
[2022-12-19 09:58] VITALS: BP 105/73; PULSE 117; RESP 20; TEMP 36.4; O2SAT 93
[2022-12-19] MEDS: albumin 25 G/100 ML BAG 60 G IV (11:28)
== END 2022-12-19 11:49 | disposition home or self-care (01) ==
LOC: GILAB 09:37
PROVIDERS: Radiology Neuroradiology; PCP Family Medicine
PROC: (CPT 49082; principal; 2022-12-19 11:00)
DX: K74.60 Unspecified cirrhosis of liver (principal)
CPT/HCPCS: 49083; P9046

== ENCOUNTER 2022-12-26 09:59 | Day surgery (SDC) | payer MEDICARE, MEDICAID, SELFPAY ==
[2022-12-26 10:09] VITALS: BP 114/75; PULSE 103; RESP 16; TEMP 36.3; O2SAT 93
[2022-12-26 10:20] VITALS: BMI 19.1
--- NOTE | 2022-12-26 10:21 | US_ITS ---
WS: [id number] ULTRASOUND-GUIDED THERAPEUTIC PARACENTESIS Procedure, risks, and complications have been explained to the patient. Consent is obtained. Utilizing aseptic technique and 1% buffered lidocaine, a small dermatome was made through which a 5 F rench Yueh catheter was inserted. Approximately 3000 ml of clear peritoneal fluid was obtained witho ut difficulty. No complications encountered. IMPRESSION: Uncomplicated paracentesis yielding 3000 ml of peritoneal fluid.
[2022-12-26] MEDS: albumin 25 G/100 ML BAG 60 G IV (11:18)
== END 2022-12-26 11:58 | disposition home or self-care (01) ==
LOC: GILAB 09:59
PROVIDERS: Radiology Diagnostic Radiology; PCP Family Medicine; Visit Provider Registered Nurse
PROC: (CPT 49082; principal; 2022-12-26 11:00)
DX: K74.60 Unspecified cirrhosis of liver (principal)
CPT/HCPCS: 49083; 96365; P9046

== ENCOUNTER → 2022-12-27 10:02 | Day surgery (SDC) | payer MEDICARE, MEDICAID, SELFPAY ==
[2022-12-27 10:05] VITALS: RESP 16
--- NOTE | 2022-12-27 10:05 | PC.NURSE ---
Pt to GI infusions for rios cath removal. 10 mL water removed from three-way rios and cath dc'd without difficulty. No bleeding noted. Pt and daughter instructed to return to ED in 6 hours if patient unable to void as ordered per Elizabeth Harrington NP. Patient and daughter verbalized understanding.
== END ==
PROVIDERS: PCP Family Medicine; Visit Provider Registered Nurse
DX: R33.9 Retention of urine, unspecified (principal)
CPT/HCPCS: 99212

== ENCOUNTER 2023-01-02 09:40 | Day surgery (SDC) | payer MEDICARE, MEDICAID, SELFPAY ==
--- NOTE | 2023-01-02 09:51 | US_ITS ---
WS: [email or web address] ULTRASOUND-GUIDED PARACENTESIS CLINICAL INFORMATION: ascites COMPARISON: None. Procedure Informed consent: The risks, benefits, and alternatives of the procedure were discussed with the jacinta ent. Verbal and written consent was obtained. Timeout: A timeout was performed to confirm the correct patient, procedure, and site. Preparation: A suitable skin site was identified. The patient was prepped and draped in usual sterile fashion. Lidocaine 1% was used for local anesthesia. Catheter: 4 Bengali One-step Yueh catheter. Side: LEFT lower quadrant. Fluid Volume: 1500 ml Color: Clear yellow DISPOSITION: Discarded safely. Complications: None. Patient disposition: Discharged from the department in stable condition. IMPRESSION: Uncomplicated ultrasound-guided paracentesis. Removal of 1500 cc
[2023-01-02 09:59] VITALS: BP 91/64; PULSE 116; RESP 20; TEMP 36.1; O2SAT 99; BMI 17.2
[2023-01-02] MEDS: albumin 25 G/100 ML BAG 60 G IV (10:51)
[2023-01-02 11:10] VITALS: BP 97/61
== END 2023-01-02 11:14 | disposition home or self-care (01) ==
PROVIDERS: Radiology Neuroradiology; PCP Family Medicine; Visit Provider Registered Nurse
PROC: (CPT 49082; principal; 2023-01-02 11:00)
DX: R18.8 Other ascites (principal)
CPT/HCPCS: 49083; 96365; P9046

== ENCOUNTER 2023-01-09 09:43 | Day surgery (SDC) | payer MEDICARE, MEDICAID, SELFPAY ==
--- NOTE | 2023-01-09 09:58 | US_ITS ---
WS: [email or web address] ULTRASOUND-GUIDED THERAPEUTIC PARACENTESIS Procedure, risks, and complications have been explained to the patient. Consent is obtained. Utilizing aseptic technique and 1% buffered lidocaine, a small dermatome was made through which a 5 F rench Yueh catheter was inserted. Approximately 2100 ml of clear peritoneal fluid was obtained witho ut difficulty. No complications encountered. IMPRESSION: Uncomplicated paracentesis yielding 2100 ml of peritoneal fluid.
[2023-01-09 10:05] VITALS: BP 96/69; PULSE 110; RESP 18; TEMP 36.6; O2SAT 99
[2023-01-09 11:22] VITALS: BMI 15.7
[2023-01-09] MEDS: albumin 25 G/100 ML BAG 60 G IV (11:24)
[2023-01-09 11:29] LABS: Hematocrit 22.9 % (37-53); Mean Corpuscular HGB Conc 30.1 g/dL (30-55); Mean Corpuscular Volume 116.2 fl (82-101); Mean Platelet Volume 10.6 fL (7.4-10.4); Platelet Count 133 10^3/cmm (157-399); Red Blood Count 1.97 10^6/uL (3.85-5.65); Red Cell Distribution Width 22.5 % (12.1-15.1); White Blood Count 24.53 10^3/uL (3.29-11.43)
[2023-01-09 12:03] LABS: Absolute Segmented Neutrophil 22.3 10/cmm (1.6-7.1); Eosinophils 0 %; Lymphocytes 3 %; Lymphocytes Absolute 0.7 10^3/cmm (1.2-3.4); Monocytes Absolute 0.5 10^3/cmm (0.1-0.6); Segmented Neutrophils 91 %; Total Cells Counted 100 (0-100)
[2023-01-09 12:04] LABS: Anisocytosis 2+
[2023-01-09 12:05] LABS: Macrocytosis 1+; Microcytosis Trace; Poikilocytosis 1+
[2023-01-09 12:06] LABS: Absolute Neutrophil 23.3 10^3/cmm (1.4-6.5); Platelet Estimate Decreased (Normal)
== END 2023-01-09 12:03 | disposition home or self-care (01) ==
LOC: GILAB 09:43
PROVIDERS: Radiology Diagnostic Radiology; PCP Family Medicine; Visit Provider Registered Nurse
PROC: (CPT 49082; principal; 2023-01-09 11:00)
DX: K74.60 Unspecified cirrhosis of liver (principal)
CPT/HCPCS: 49083; 85007; 85027; 96365; P9046

== ENCOUNTER 2023-01-16 09:56 | Day surgery (SDC) | payer MEDICARE, MEDICAID, SELFPAY ==
--- NOTE | 2023-01-16 10:00 | US_ITS ---
WS: [email or web address] INDICATION: Cirrhosis TECHNIQUE: Four-quadrant ultrasound FINDINGS: Only mild abdominal ascites. Insufficient fluid for paracentesis. IMPRESSION: Insufficient fluid for paracentesis
[2023-01-16 10:09] VITALS: BP 68/47; PULSE 94; RESP 18; TEMP 36.1; O2SAT 97
[2023-01-16 10:19] VITALS: BP 98/66
== END 2023-01-16 10:40 | disposition home or self-care (01) ==
LOC: GILAB 09:57
PROVIDERS: Radiology Neuroradiology; PCP Family Medicine; Visit Provider Registered Nurse
DX: K74.60 Unspecified cirrhosis of liver (principal)
CPT/HCPCS: 76705

== ENCOUNTER 2023-01-16 11:25 | Emergency (ER) | payer MEDICARE, MEDICAID, SELFPAY ==
[2023-01-16] VITALS (13 sets, daily range): BP systolic 73–117; BP diastolic 47–66; PULSE 71–90; RESP 16–18; TEMP 36.4–36.6; O2SAT 95–99; BMI 13.4
[2023-01-16 12:07] LABS: Basophils # 0.2 10^3/uL (0.0-0.1); Basophils % 0.4 %; Eosinophils % 0.1 %; Hematocrit 22.8 % (37-53); Lymphocytes # 1.4 10^3/uL (0.8-4.8); Lymphocytes % 3.2 %; Mean Corpuscular HGB Conc 30.3 g/dL (30-55); Mean Corpuscular Hemoglobin 35.2 pg (27-33); Mean Corpuscular Volume 116.3 fl (82-101); Mean Platelet Volume 11.4 fL (7.4-10.4); Monocytes # 0.8 10^3/uL (0.2-0.9); Monocytes % 1.9 %; Neutrophils # 41.78 10^3/uL (1.8-7.7); Neutrophils % 92.6 %; Nucleated Red Blood Cells % 0 %; Platelet Count 187 10^3/cmm (157-399); Red Blood Count 1.96 10^6/uL (3.85-5.65); Red Cell Distribution Width 20.5 % (12.1-15.1)
[2023-01-16 12:15] LABS: White Blood Count 45.07 10^3/uL (3.29-11.43)
--- NOTE | 2023-01-16 12:17 | XRR_ITS ---
PROCEDURE INFORMATION: Exam: XR Chest Exam date and time: 01/16/2023 1:01 PM Age: 82 years old Clinical indication: Cough and dyspnea; Additional info: Dyspnea/cough TECHNIQUE: Imaging protocol: Radiologic exam of the chest. Views: 1 view. COMPARISON: CR (CHEST, ) 12/17/2022 1:02 PM FINDINGS: Lungs: Unremarkable. No consolidation. Pleural spaces: Unremarkable. No pleural effusion. No pneumothorax. Heart/Mediastinum: Unremarkable. No cardiomegaly. Bones/joints: Unremarkable. XR/XR chest 1V portable [id number] IMPRESSION: No acute findings.
[2023-01-16 12:34] LABS: INR 1.51 (0.8-1.2)
[2023-01-16 12:39] LABS: Alanine Aminotransferase 19 U/L (0-41); Albumin Level 2.3 g/dL (3.5-5.2); Alkaline Phosphatase 393 U/L (40-130); Anion Gap 25.5 (5-19); Aspartate Amino Transferase 42 U/L (0-40); Calcium 8.7 mg/dL (8.5-10.5); Carbon Dioxide 15 mmol/L (22-29); Chloride 101 mmol/L (98-107); Globulin 5.1 g/dL (1.3-4.6); Glucose 106 mg/dL (65-115); Osmolality Calculated 310 mOsm/kg (285-295); Potassium 4.5 mmol/L (3.5-5.1); Sodium 137 mmol/L (136-145); Total Bilirubin 0.4 mg/dL (0.15-1.2); Total Protein 7.4 g/dL (6.6-8.7)
--- NOTE | 2023-01-16 12:46 | W.ED.GENADLT ---
HPI - General Adult General: Chief complaint: General Medical Stated complaint: sent over for blood transfusion Time Seen by Provider: 01/16/23 12:34 Source: patient Mode of arrival: ambulatory Limitations: no limitations History of Present Illness: 82-year-old male with history of renal cancer along with cirrhosis he states he is on palliative care states he does have a history of anemia had been seen by his PCP had a hemoglobin of 6.9 states that he likely transfusion. He is quite hypotensive. He states that he does not want any other treatment at this time though. Associated symptoms: Deny chest pain, dyspnea, headache(s), nausea, rash or vomiting Review of Systems Const: Reports: fatigue; Denies: fever(s) or chills ENMT: Denies: throat pain or dental pain Card: Denies: chest pain Resp: Denies: dyspnea GI: Denies: abdominal pain, nausea, vomiting or diarrhea : Reports: hematuria Musc: Denies: neck pain or back pain Skin/Breast: Denies: rash Neuro: Denies: headache(s) PFSH ED PFSH: Medical History CAD (coronary artery disease) Chronic kidney disease (CKD) COPD (chronic obstructive pulmonary disease) Diabetes mellitus Dyslipidemia Gout, unspecified High risk medication use High risk medication use History of anterior wall myocardial infarction History of malignant melanoma Ischemic cardiomyopathy Mild aortic stenosis Presence of stent in LAD coronary artery Rheumatoid arthritis with rheumatoid factor of multiple sites without organ or systems involvement Tobacco abuse Surgical History H/O bilateral cataract extraction History of eye evisceration History of hip surgery Stented coronary artery Family History Denies family history of Rheumatoid arthritis Lupus Social History Smoking and tobacco/nicotine status: current every day tobacco/nicotine user cigarettes Packs smoked per day: 1.5 Years cigarettes smoked: 30 Alcohol intake: never Substance/Drug Use: never Marital status: Physical Exam Const: COMMON NORMALS: patient oriented x3 GENERAL APPEARANCE: ill appearing HENMT: COMMON NORMALS: normocephalic and atraumatic HEAD & SCALP: normocephalic and atraumatic Neck/C-Spine: COMMON NORMALS: full ROM and supple Chest: COMMONS NORMALS: normal inspection of the chest Resp: COMMON NORMALS: normal respiratory effort Cardio: COMMON NORMALS: regular rate, regular rhythm and No murmurs present (Cardio) RATE: regular rate RHYTHM: regular rhythm GI: INSPECTION: Yes normal to inspection Extremity: COMMON NORMALS: normal to inspection and full ROM Neuro: COMMON NORMALS: patient oriented x3, moves all extremities and no focal motor deficits Psych: COMMON NORMALS: mental status grossly normal, Normal thought process present and cooperative THOUGHT PROCESS: Normal thought process present Skin: COMMON NORMALS: no rashes or lesions noted and no wounds GENERAL SKIN EXAM: no rashes or lesions noted Course Vital Signs: Vital signs: Vital Signs Temperature 97.8 F 01/16/23 16:21 Pulse Rate 82 01/16/23 16:21 Respiratory Rate 16 01/16/23 16:21 Blood Pressure 117/62 01/16/23 16:21 Pulse Oximetry 97 01/16/23 16:21 Oxygen Delivery Me thod Room Air 01/16/23 12:20 MDM - General Adult Medical Decision Making Patient presents here with anemia he also has a extremely elevated white count along with appearance of being septic with elevated lactate. I had a long discussion with him he has renal cancer and cirrhosis he states he is on palliative care and he does not want to be admitted all he wants at this time is a transfusion and discharge did transfuse him here he is stable for discharge at this time we will prescribe antibiotics as he stated he would take antibiotics at home but he wants no further treating as he knows that he is at the end of his life and just wants palliative care. Medical Records I reviewed the patient's medical records. Lab Data I reviewed the patient's lab results. 01/16/23 11:58 01/16/23 11:58 Radiology Impressions Chest X-Ray 01/16/23 12:17 IMPRESSION: No acute findings. Laboratory Results WBC 45.07 10^3/uL (3.29-11.43) H* 01/16/23 11:58 RBC 1.96 10^6/uL (3.85-5.65) L 01/16/23 11:58 Hgb 6.90 g/dL (11.27-16.99) L 01/16/23 11:58 Hct 22.8 % (37-53) L 01/16/23 11:58 MCV 116.3 fl (82-101) H 01/16/23 11:58 MCH 35.2 pg (27-33) H 01/16/23 11:58 MCHC 30.3 g/dL (30-55) 01/16/23 11:58 RDW 20.5 % (12.1-15.1) H 01/16/23 11:58 Plt Count 187 10^3/cmm (157-399) 01/16/23 11:58 MPV 11.4 fL (7.4-10.4) H 01/16/23 11:58 Neut % (Auto) 92.6 % 01/16/23 11:58 Lymph % (Auto) 3.2 % 01/16/23 11:58 Power % (Auto) 1.9 % 01/16/23 11:58 Eos % (Auto) 0.1 % 01/16/23 11:58 Baso % (Auto) 0.4 % 01/16/23 11:58 Neut # (Auto) 41.78 10^3/uL (1.8-7.7) H 01/16/23 11:58 Lymph # (Auto) 1.4 10^3/uL (0.8-4.8) 01/16/23 11:58 Power # (Auto) 0.8 10^3/uL (0.2-0.9) 01/16/23 11:58 Eos # (Auto) 0.0 10^3/uL (0.0-0.8) 01/16/23 11:58 Baso # (Auto) 0.2 10^3/uL (0.0-0.1) H 01/16/23 11:58 Nucleated RBC % (auto) 0 % 01/16/23 11:58 Nucleated RBCs # 0.0 /100WBC 01/16/23 11:58 PT 18.80 SECONDS (12.1-14.9) H 01/16/23 11:58 INR 1.51 (0.8-1.2) H 01/16/23 11:58 Sodium 137 mmol/L (136-145) 01/16/23 11:58 Potassium 4.5 mmol/L (3.5-5.1) 01/16/23 11:58 Chloride 101 mmol/L (98-107) 01/16/23 11:58 Carbon Dioxide 15 mmol/L (22-29) L 01/16/23 11:58 Anion Gap 25.5 (5-19) H 01/16/23 11:58 BUN 84 mg/dL (8-23) H* 01/16/23 11:58 Creatinine 5.3 mg/dL (0.7-1.2) H 01/16/23 11:58 GFR Calculation Not Reportable 01/16/23 11:58 Glucose 106 mg/dL (65-115) 01/16/23 11:58 Calculated Osmolality 310 mOsm/kg (285-295) H 01/16/23 11:58 Lactic Acid 6.7 mmol/L (0.5-2.2) H* 01/16/23 12:35 Calcium 8.7 mg/dL (8.5-10.5) 01/16/23 11:58 Magnesium 1.9 mg/dL (1.7-2.3) 01/16/23 11:58 Total Bilirubin 0.4 mg/dL (0.15-1.2) 01/16/23 11:58 AST 42 U/L (0-40) H 01/16/23 11:58 ALT 19 U/L (0-41) 01/16/23 11:58 Alkaline Phosphatase 393 U/L (40-130) H 01/16/23 11:58 Creatine Kinase 45 U/L (39-308) 01/16/23 11:58 Total Protein 7.4 g/dL (6.6-8.7) 01/16/23 11:58 Albumin 2.3 g/dL (3.5-5.2) L 01/16/23 11:58 Globulin 5.1 g/dL (1.3-4.6) H 01/16/23 11:58 Urine Color Red (Yellow) A 01/16/23 13:47 Urine Appearance Turbid (CLEAR) A 01/16/23 13:47 Urine pH 6 (5-7) 01/16/23 13:47 Ur Specific Bradford 1.015 (1.005-1.030) 01/16/23 13:47 Urine Protein 3+ (Negative) H 01/16/23 13:47 Urine Glucose (UA) Norm (Normal) 01/16/23 13:47 Urine Ketones Negative (Negative) 01/16/23 13:47 Urine Blood 3+ (Negative) H 01/16/23 13:47 Urine Nitrate Negative (Negative) 01/16/23 13:47 Urine Bilirubin Neg (Negative) 01/16/23 13:47 Urine Urobilinogen Norm mg/dL (Negative) 01/16/23 13:47 Ur Leukocyte Esterase 2+ (Negative) H 01/16/23 13:47 Urine RBC Too numerous to cnt /hpf (0-2) H 01/16/23 13:47 Urine WBC Too numerous to cnt /hpf (0-5) H 01/16/23 13:47 Ur Squamous Epith Cells 0-4 /hpf (0-5) H 01/16/23 13:47 Amorphous Sediment Not Reportable 01/16/23 13:47 Urine Bacteria Trace /hpf (NONE) 01/16/23 13:47 Urine Yeast Trace /hpf 01/16/23 13:47 Influenza Type A Ag negative (Negative) 01/16/23 13:01 Influenza Type B Ag negative (Negative) 01/16/23 13:01 Blood Type O Negative 01/16/23 11:58 Rho(D) Type Negative 01/16/23 11:58 Antibody Screen Negative 01/16/23 11:58 Crossmatch See Detail 01/16/23 11:58 No radiology studies performed this visit Discharge Plan Discharge Patient Disposition: Home Clinical Impression: Anemia, Sepsis Condition: Stable Prescriptions: New cephalexin 500 mg capsule 500 mg PO TID 7 Days Qty: 21 0RF Percocet 7.5-325 mg tablet 1 tab PO Q8H PRN (Reason: pain) Qty: 20 0RF No Action albuterol sulfate [ProAir HFA] 90 mcg/actuation HFA aerosol inhaler 2 puff INHALATION Q6H PRN (Reason: Shortness Of Breath) fluticasone propion-salmeterol [Advair Diskus] 250-50 mcg/dose blister with device 1 inh INHALATION BID Incruse Ellipta 62.5 mcg/actuation blister with device 1 inh INHALATION Q24H albuterol sulfate 2.5 mg /3 mL (0.083 %) solution for nebulization 2.5 mg continuous nebulization Q4H PRN (Reason: Shortness Of Breath) (DME) Shree Ferraro See Rx Instructions .Route .MEDSUPPLY Qty: 1 0RF Rx Instructions: As directed. simvastatin 40 mg tablet 40 mg PO BEDTIME Qty: 90 2RF trazodone 50 mg tablet 50 mg PO BEDTIME hydroxyzine HCl 10 mg tablet 10 mg PO Q8H PRN (Reason: Itching) potassium chloride 10 mEq tablet extended release 10 meq PO QAM furosemide 20 mg tablet 20 mg PO EVERY OTHER DAY tamsulosin [Flomax] 0.4 mg Capsule 0.4 mg PO QAM ipratropium-albuterol 0.5 mg-3 mg(2.5 mg base)/3 mL solution for nebulization 3 ml INHALATION Q6H PRN (Reason: Shortness Of Breath) docusate sodium [Colace] 100 mg Capsule 100 mg PO DAILY PRN (Reason: Constipation) spironolactone 50 mg tablet 50 mg PO QAM Probiotic Blend 2 billion cell-50 mg Capsule 1 cap PO QAM Rx Instructions: give with meal/snack Humira(CF) Pen 40 mg/0.4 mL pen injector kit 40 mg SUBCUT Q14D Rx Instructions: (MEDICATION ON HOLD 12/17/22 NOT HAD SINCE SEPTEMBER 2022) folic acid 1 mg tablet 1 mg PO QAM Discharge Orders: Discharge ED (Routine); Ordered 01/16/23 Ordered By: Veronica Hurd Referrals: Maria Del Carmen London MD [Primary Care Provider] - Discharge Diet: Advance as tolerated Discharge Activity: Resume usual activity Patient Instructions: Anemia (ED), Opioid Safety Coding Level of Care Code ED Shower Enclosure Installer for Cathie Gonzalez
[2023-01-16] MEDS: sodium chloride 0.9% 500 ML 999 ML IV (12:51)
[2023-01-16 13:02] LABS: Blood Urea Nitrogen 84 mg/dL (8-23)
[2023-01-16 13:03] LABS: Creatine Phosphokinase 45 U/L (39-308); Magnesium 1.9 mg/dL (1.7-2.3)
[2023-01-16 13:23] LABS: Lactic Sepsis W/Reflex 6.7 mmol/L (0.5-2.2)
[2023-01-16] MEDS: cefTRIAXone 1,000 MG in sodium chloride 0.9% (plus) 50 ML 100 MG IV (13:43)
[2023-01-16] MEDS: sodium chloride 0.9% 1,000 ML 999 ML IV (13:44)
[2023-01-16 14:01] LABS: Influenza A by IFA negative (Negative); Influenza B by IFA negative (Negative)
[2023-01-16 14:36] LABS: Bilirubin Urine Neg (Negative); Blood Urine 3+ (Negative); Glucose Urine UA Norm (Normal); Specific Gravity, Urine 1.015 (1.005-1.030); Urine Appearance Turbid (CLEAR); Urine Color Red (Yellow)
[2023-01-16 14:37] LABS: Add Urine Microscopic? YES; Leukocyte Esterase Urine 2+ (Negative); Urobilinogen Urine Norm (Negative)
[2023-01-16 14:38] LABS: Ketones Urine Negative (Negative); pH Urine 6 (5-7)
[2023-01-16 14:39] LABS: Nitrate Urine Negative (Negative); Protein Urine 3+ (Negative)
[2023-01-16 14:40] LABS: Bacteria Urine TRACE /hpf; RBC Urine TOO NUMEROUS TO CNT /hpf (0-2); Squamous Epithelial Cell Urine 0-4 /hpf (0-5); WBC Urine TOO NUMEROUS TO CNT /hpf (0-5)
[2023-01-16 14:40] LABS: Reflex Lactate Order REFLEX LACTIC ORDERD
[2023-01-16 14:41] LABS: Add Urine Culture? Yes
--- NOTE | 2023-01-16 16:17 | PC.NURSE ---
RN initiated blood transfusion at 1408. Rate began at 75 mL/hr. Rate increased to 100 mL/hr at 1430 after vital signs continued to be stable and pt had no complaints. Rate increased to 125 at 1450 after vital signs continued to stay stable. Rate increased to 175 ml/hr at 15. Rate increased to 225 at 1515 after pt reported no changes and vitals continued to be stable. Rate increased to 240 at 1545 due to stable vitals and pt feeling better. Infusion complete at time in the [facility]. Pt is stable and feeling good at the end of blood transfusion.
[2023-01-16 17:11] LABS: Adenovirus Not Detected (NOT DETECT); Chlamydia Pneumoniae Not Detected (NOT DETECT); Coronavirus 229E,HKU1,NL63,OC4 Not Detected (NOT DETECT); Human Metapneumovirus Not Detected (NOT DETECT); Human Rhinovirus/Enterovirus Not Detected (NOT DETECT); Influenza A Not Detected (NOT DETECT); Influenza A H1 Not Detected (NOT DETECT); Influenza A H1-2009 Not Detected (NOT DETECT); Influenza A H3 Not Detected (NOT DETECT); Influenza B Not Detected (NOT DETECT); Mycoplasma Pneumoniae Not Detected (NOT DETECT); Parainfluenza Virus Type 1 Not Detected (NOT DETECT); Parainfluenza Virus Type 2 Not Detected (NOT DETECT); Parainfluenza Virus Type 3 Not Detected (NOT DETECT); Parainfluenza Virus Type 4 Not Detected (NOT DETECT); Respiratory Syncytial Virus A Not Detected (NOT DETECT); Respiratory Syncytial Virus B Not Detected (NOT DETECT); SARS-COV-2 Not Detected (NOT DETECT)
== END 2023-01-16 16:21 | disposition home or self-care (01) ==
PROVIDERS: Family Medicine; Emergency Provider Emergency Medicine; PCP Family Medicine
DX: A41.9 Sepsis, unspecified organism (principal); D64.9 Anemia, unspecified; F17.210 Nicotine dependence, cigarettes, uncomplicated; I25.10 Atherosclerotic heart disease of native coronary artery without angina pectoris; E11.22 Type 2 diabetes mellitus with diabetic chronic kidney disease; N18.9 Chronic kidney disease, unspecified; J44.9 Chronic obstructive pulmonary disease, unspecified; E78.5 Hyperlipidemia, unspecified; I42.9 Cardiomyopathy, unspecified; Z11.52 Encounter for screening for COVID-19
CPT/HCPCS: 36415; 36430; 71045; 80053; 81001; 82550; 83605; 83735; 85025; 85610; 86850; 86900; 86920; 87040; 87086; 87635; 87804; 96361; 96365; 99284; J0696; J7030; J7040; P9016